=== PATIENT | female | born 1950 | race African-American/Black ===

== ENCOUNTER 2016-03-19 15:49 | Inpatient (IN) | payer OTHER, MEDICARE ==
[~2016-03-19] VITALS: Ht 166.4 cm; Wt 112.3 kg
[2016-03-19] VITALS (15 sets, daily range): BP systolic 129–187; BP diastolic 74–90; PULSE 79–84; RESP 24–34; TEMP 97.6–98.2; O2SAT 95–100
[~2016-03-19 15:49] MED LIST: 1-ME1LIQ PO; ACET325 PO; GABA300C3 PO; LORTA5 PO; METF-324; VASO10TA8 PO; ZOCO40TA PO
[2016-03-19 16:15] LABS: BLOOD GAS BASE EXCESS 2.5 mmol/L (-2-2); BLOOD GAS CARBOXYHEMOGLOBIN 2.4 % (0-4); BLOOD GAS HCO3 29 mmol/L (22-26); BLOOD GAS O2 HGB SATURATION 93 % (90-100); BLOOD GAS PCO2 64 mmHg (38-42); BLOOD GAS PO2 100 mmHG (61-120); BLOOD GAS TOTAL HGB 12.1 G/DL (12.0-16.0); TEMP CORR TO 98.6
[2016-03-19] MEDS ORDERED: SODIUM CHLORIDE 0.9% FLUSH 5 ML FLUSH IVF PRN (16:15)
[2016-03-19] MEDS ORDERED: FUROSEMIDE 100 MG/10 ML VIAL IV PUSH ONE (16:15)
[2016-03-19 16:16] LABS: CRITICAL VALUE YES; DRAW SITE RT RADIAL; FIO2 100 %; LITER FLOW 15 L/M; NUMBER OF ARTERIAL PUNCTURES 1; STAT YES; ULNAR PULSE PRESENT
--- NOTE | 2016-03-19 16:24 | PD ---
HPI Chief Complaint: respiratory distress Time Seen by Provider: 16:01 Travel History International Travel<30 days: No Contact w/Intl Traveler<30days: No Traveled to known affect area: No History of Present Illness HPI 66-year-old female came to the emergency room with history of progressive shortness of breath for past 2 months. She has been seeing her wrapper cashier and aix architect for this. However for past couple days it has become very difficult for her to do the slightest of the activities without getting short of breath. She was brought in by her family and in triage her oxygen saturation was 71% on room air. Droop or either she is saturating 99%. She is able to answer my questions appropriately. She does appear to be moderately short of breath at rest. Denies any history of chest pain. She has history of coronary artery disease. [facility] Past Medical History Narrative Medical List of her past medical history is reviewed from the nursing note. Blood Disorders: Yes (past history of anemia) Cardiovascular Problems: Yes Chest Pain: Yes Diabetes: Yes (oral med controlled) Headaches: Yes Hypertension: Yes Neurologic: Yes Past Surgical History Gynecologic Surgery: Yes (tubal ligation) Social History Alcohol Use: Yes (occasional glass of wine) Tobacco Use: No Substance Use: No Allergies-Medications (Allergen,Severity, Reaction): Coded Allergies: No Known Allergies (Verified , 03/19/16) Comments No known drug allergies. Reported Meds & Prescriptions Reported Meds & Active Scripts Active Reported Dulera 120 Act Inh (Mometasone-Formoterol 120 Act Inh) 100-5 Mcg/Act Inh 2 Puff INH BID Naproxen 500 Mg Tab 500 Mg PO BID PRN Vitamin D (Cholecalciferol) 1,000 Unit Tab 1,000 Units PO DAILY Simvastatin 10 Mg Tab 10 Mg PO DAILY Losartan (Losartan Potassium) 25 Mg Tab 25 Mg PO DAILY Diclofenac Sodium DR (Diclofenac Sodium) 75 Mg Tabdr 75 Mg PO DAILY Amlodipine (Amlodipine Besylate) 10 Mg Tab 10 Mg PO DAILY Allopurinol 300 Mg Tab 300 Mg PO DAILY Atenolol 50 Mg Tab 50 Mg PO DAILY Invokamet (Canagliflozin-Metformin) 150-1,000 Mg Tab 1 Tab PO BID Take with meals. Avoid ethanol. Narrative Medication List of her home medications reviewed from the nursing note. Review of Systems Except as stated in HPI: all other systems reviewed are Neg Physical Exam Narrative GENERAL: Awake, alert, obese, moderate distress SKIN: Warm and dry. HEAD: Atraumatic. Normocephalic. EYES: Pupils equal and round. No scleral icterus. No injection or drainage. ENT: No nasal bleeding or discharge. Mucous membranes pink and moist. NECK: Trachea midline. No JVD. CARDIOVASCULAR: Regular rate and rhythm. No murmur appreciated. RESPIRATORY: Tachypnea, use of accessory muscles for respiration. Decreased air entry especially right side with bibasilar crackles GASTROINTESTINAL: Abdomen soft, non-tender, nondistended. Hepatic and splenic margins not palpable. MUSCULOSKELETAL: No obvious deformities. No clubbing. No cyanosis. No edema. NEUROLOGICAL: Awake and alert. No obvious cranial nerve deficits. Motor grossly within normal limits. Normal speech. PSYCHIATRIC: Appropriate mood and affect; insight and judgment normal. Data Data Last Documented VS Vital Signs Date Time Temp Pulse Resp B/P Pulse Ox O2 Delivery O2 Flow Rate FiO2 03/19/16 17:30 82 24 148/84 99 BiPAP 60 03/19/16 16:10 15 03/19/16 16:00 98.2 Orders Complete Blood Count With Diff (03/19/16 16:01) Basic Metabolic Panel (Bmp) (03/19/16 16:01) B-Type Natriuretic Peptide (03/19/16 16:01) Prothrombin Time / Inr (Pt) (03/19/16 16:01) Magnesium (Mg) (03/19/16 16:01) Ckmb (Isoenzyme) Profile (03/19/16 16:01) Troponin I (03/19/16 16:01) Arterial Blood Gas (Abg) (03/19/16 16:01) Urinalysis - C+S If Indicated (03/19/16 16:01) Iv Access Insert/Monitor (03/19/16 16:01) Electrocardiogram (03/19/16 16:01) Ecg Monitoring (03/19/16 16:01) Oximetry (03/19/16 16:01) Oxygen Administration (03/19/16 16:01) Chest, Single Ap (03/19/16 16:01) Ct Pulmonary Angiogram (03/19/16 16:01) Sodium Chloride 0.9% Flush (Ns Flush) (03/19/16 16:15) Furosemide Inj (Lasix Inj) (03/19/16 16:15) Resp Bipap / Cpap Non Invas Vt (03/19/16 ) Arterial Blood Gas (Abg) (03/19/16 ) Admit Order (Ed Use Only) (03/19/16 17:52) Arterial Blood Gas (Abg) (03/19/16 19:00) Labs Laboratory Tests Test 03/19/16 03/19/16 03/19/16 16:06 16:10 17:18 Blood Gas Puncture Site RT RADIAL RT RADIAL Blood Gas Patient Temperature 98.6 98.6 Blood Gas HCO3 29 mmol/L 29 mmol/L Blood Gas Base Excess 2.5 mmol/L 2.6 mmol/L Blood Gas Oxygen Saturation 93 % 91 % Arterial Blood pH 7.27 7.27 Arterial Blood Partial 64 mmHg 64 mmHg Pressure CO2 Arterial Blood Partial 100 mmHG 84 mmHG Pressure O2 Arterial Blood Oxygen Content 16.0 Vol % 15.5 Vol % Arterial Blood 2.4 % 2.3 % Carboxyhemoglobin Arterial Blood Methemoglobin 2.0 % 2.0 % Blood Gas Hemoglobin 12.1 G/DL 12.0 G/DL Oxygen Delivery Device Non-Rebreathing BiPAP Mask Blood Gas Liter Flow 15 L/M Blood Gas Inspired Oxygen 100 % 60 % White Blood Count 6.3 TH/MM3 Red Blood Count 4.27 MIL/MM3 Hemoglobin 12.0 GM/DL Hematocrit 36.5 % Mean Corpuscular Volume 85.5 FL Mean Corpuscular Hemoglobin 28.1 PG Mean Corpuscular Hemoglobin 32.9 % Concent Red Cell Distribution Width 14.9 % Platelet Count 243 TH/MM3 Mean Platelet Volume 8.3 FL Neutrophils (%) (Auto) 71.6 % Lymphocytes (%) (Auto) 17.5 % Monocytes (%) (Auto) 8.2 % Eosinophils (%) (Auto) 2.1 % Basophils (%) (Auto) 0.6 % Neutrophils # (Auto) 4.5 TH/MM3 Lymphocytes # (Auto) 1.1 TH/MM3 Monocytes # (Auto) 0.5 TH/MM3 Eosinophils # (Auto) 0.1 TH/MM3 Basophils # (Auto) 0.0 TH/MM3 CBC Comment DIFF FINAL Differential Comment Prothrombin Time 10.0 SEC Prothromb Time International 0.9 RATIO Ratio Sodium Level 143 MEQ/L Potassium Level 4.6 MEQ/L Chloride Level 108 MEQ/L Carbon Dioxide Level 29.4 MEQ/L Anion Gap 6 MEQ/L Blood Urea Nitrogen 20 MG/DL Creatinine 1.41 MG/DL Estimat Glomerular Filtration 45 ML/MIN Rate Random Glucose 107 MG/DL Calcium Level 8.8 MG/DL Magnesium Level 2.0 MG/DL Total Creatine Kinase 52 U/L Troponin I LESS THAN 0.02 NG/ML B-Type Natriuretic Peptide 57 PG/ML Blood Gas Ventilator Setting [id number] [facility] Medical Decision Making Medical Screen Exam Complete: Yes Emergency Medical Condition: Yes Medical Record Reviewed: Yes Interpretation(s) Twelve-lead EKG was reviewed by me. Normal sinus rhythm, left axis deviation, questionable old anterior and inferior LA, anterior T-wave inversions, LVH. Heart rate of 82 bpm. Differential Diagnosis Congestive heart failure, pleural effusion, pulmonary edema, pneumonia Narrative Course 4:23 PM awaiting for the blood test results. Blood gas shows respiratory acidosis. Based on that I have ordered BiPAP. Repeat blood gas has been ordered after 1 hour of BiPAP. Awaiting for the chest x-ray to be done and resulted. I've ordered IV Lasix. Patient will require to be admitted which have discussed with her and her family understands. 5:50 PM patient's repeat blood gas after being on the BiPAP for almost an hour came back and she still in respiratory acidosis. Pressures have been increased and the nurse is trying to get a small mask for better fitting. Patient continues to be awake and answering questions appropriately. BNP and troponin are within normal limit. There is an order for pulmonary angiogram that is pending to rule out PE. I discussed the case with the day care provider Dr. Collins who has accepted the patient and agrees with the pulmonary angiogram. Critical Care Narrative Aggregate critical care time was 60 minutes. Time to perform other separately billable procedures was not included in the critical care time. My time did not include minutes spent treating any other patients simultaneously or on activities that did not directly contribute to the patient's treatment. The services I provided to this patient were to treat and/or prevent clinically significant deterioration that could result in: Respiratory distress, severe hypoxia, respiratory acidosis, BiPAP management I provided critical care services requiring my management, as noted below: Chart data review, documentation time, medication orders and management, vital sign assessments/reviewing monitor data, ordering and reviewing lab tests, ordering and interpreting/reviewing x-rays and diagnostic studies, care of the patient and discussion of the patient with the admitting physicians. Procedures EKG Prior to Arrival: Yes Physician Communication Physician Communication Dr. Collins Diagnosis Primary Impression: Respiratory distress Additional Impressions: Hypoxia Respiratory acidosis Admitting Information Admitting Physician Requests: Admit Maya Contreras MD Mar 19, 2016 16:24
--- NOTE | 2016-03-19 16:28 | RADRPT ---
EXAM DATE/TIME: 03/19/2016 16:09 [facility] COMPARISON: No previous studies available for comparison. INDICATIONS : Shortness of breath. MEDICAL HISTORY : None. SURGICAL HISTORY : None. ENCOUNTER: Initial ACUITY: 1 day PAIN SCORE: 0/10 LOCATION: Bilateral chest FINDINGS: Small bilateral pleural effusions with mild bibasilar consolidation noted. No pneumothorax seen. Hear t size within normal limits. CONCLUSION: Mild bibasilar consolidation and small effusions. Chintan Motley MD on March 19, 2016 at 16:27 Board Certified Radiologist. This report was verified electronically.
[2016-03-19 17:10] LABS: AUTOMATED NEUTROPHIL # 4.5 TH/MM3 (1.8-7.7); BASOPHIL % 0.6 % (0.0-2.0); EOSINOPHIL # 0.1 TH/MM3 (0-0.4); EOSINOPHIL % 2.1 % (0.0-4.0); HEMATOCRIT 36.5 % (35.0-46.0); HEMO FLAGS DIFF FINAL; LYMPH % 17.5 % (9.0-44.0); LYMPHOCYTE # 1.1 TH/MM3 (1.0-4.8); MEAN CELL VOLUME 85.5 FL (80.0-100.0); MEAN CORPUSCULAR HEMOGLOBIN 28.1 PG (27.0-34.0); MEAN CORPUSCULAR HGB CONC 32.9 % (32.0-36.0); MONO % 8.2 % (0.0-8.0); NEUT % 71.6 % (16.0-70.0); PLATELET COUNT 243 TH/MM3 (150-450); RED BLOOD COUNT 4.27 MIL/MM3 (4.00-5.30); RED CELL DISTRIBUTION WIDTH 14.9 % (11.6-17.2); WHITE BLOOD COUNT 6.3 TH/MM3 (4.0-11.0)
[2016-03-19 17:17] LABS: INTERNATIONAL NORMALIZED RATIO 0.9 RATIO
[2016-03-19 17:28] LABS: ANION GAP 6 MEQ/L (5-15); BICARBONATE 29.4 MEQ/L (21.0-32.0); BLOOD UREA NITROGEN 20 MG/DL (7-18); CHLORIDE 108 MEQ/L (98-107); GLOMERULAR FILTRATION RATE 45 ML/MIN (>89); POTASSIUM 4.6 MEQ/L (3.5-5.1); SODIUM (NA) 143 MEQ/L (136-145)
[2016-03-19 17:29] LABS: BLOOD GAS BASE EXCESS 2.6 mmol/L (-2-2); BLOOD GAS CARBOXYHEMOGLOBIN 2.3 % (0-4); BLOOD GAS HCO3 29 mmol/L (22-26); BLOOD GAS O2 HGB SATURATION 91 % (90-100); BLOOD GAS OXYGEN CONTENT 15.5 Vol % (12.0-20.0); BLOOD GAS PCO2 64 mmHg (38-42); BLOOD GAS PO2 84 mmHG (61-120); CRITICAL VALUE YES; TEMP CORR TO 98.6
[2016-03-19 17:30] LABS: DRAW SITE RT RADIAL; FIO2 60 %; NUMBER OF ARTERIAL PUNCTURES 1; OXYGEN DEVICE BiPAP; STAT NO; ULNAR PULSE PRESENT; VENT SETTINGS IPAP15EPAP7
[2016-03-19 17:33] LABS: CREATINE KINASE 52 U/L (26-192)
[2016-03-19] MEDS ORDERED: ONDANSETRON HCL 4 MG/2 ML VIAL IV PRN (18:00)
[2016-03-19] MEDS ORDERED: DEXTROSE 50% IN WATER 50 ML VIAL(D50) IV PUSH PRN (18:00)
[2016-03-19] MEDS ORDERED: RESP: ALBUTEROL 2.5 MG/IPRATROPIUM 0.5 MG NEB (PRN) INH (18:00)
[2016-03-19] MEDS ORDERED: MISCELLANEOUS NURSING INFORMATION XX SCH (18:00)
[2016-03-19] MEDS ORDERED: SODIUM CHLORIDE 0.9% FLUSH 5 ML FLUSH IV FLUSH PRN (18:00)
[2016-03-19] MEDS: INSULIN NovoLIN REGULAR SUPPLEMENTAL SCALE SQ SCH (18:00)
[2016-03-19] MEDS ORDERED: CHLORHEXIDINE GLUCONATE 2 % 1 PACK (2 CLOTHS) TOP PRN (18:00)
[2016-03-19] MEDS ORDERED: IOHEXOL 350 MG/ML 10 ML VIAL (for RAD DIAG) IV ONE (18:04)
--- NOTE | 2016-03-19 18:20 | RADRPT ---
EXAM DATE/TIME: 03/19/2016 17:52 [facility] COMPARISON: No previous studies available for comparison. INDICATIONS : Shortness of breath. IV CONTRAST: 50 cc Omnipaque 350 (iohexol) IV RADIATION DOSE: 25.12 CTDIvol (mGy) MEDICAL HISTORY : Cardiovascular disease. Hypertension. SURGICAL HISTORY : None. ENCOUNTER: Initial ACUITY: 1 day PAIN SCALE: 3/10 LOCATION: Bilateral chest TECHNIQUE: Volumetric scanning of the chest was performed using a pulmonary embolism protocol MIP images were re constructed. Using automated exposure control and adjustment of the mA and/or kV according to patien t size, radiation dose was kept as low as reasonably achievable to obtain optimal diagnostic quality images. FINDINGS: No pulmonary embolus. There is left ventricular enlargement. No perceptible coronary artery calcifica tion seen. Moderate bibasilar atelectasis noted and there are small, bilateral pleural effusions as well. N o pneumothorax. There is a 2.3 x 2.9 cm subcarinal lymph node. Some scattered subcentimeter lymph nodes are seen elsewhere in the mediastinum. CONCLUSION: 1. No pulmonary embolus. 2. Moderate bibasilar atelectasis and small bilateral pleural effusions. 3. Nonspecific upper limits of normal to mildly enlarged mediastinal lymph nodes. 4. Left ventricular enlargement. Chintan Motley MD on March 19, 2016 at 18:14 Board Certified Radiologist. This report was verified electronically.
[2016-03-19 18:25] LABS: BLOOD, URINE NEG (NEG); COMMENT (UR) CULT NOT INDICATED; CULTURE IF INDICATED CULT NOT INDICATED; GLUCOSE,URINE NEG (NEG); HYALINE CAST, URINE 1 /lpf (RARE); KETONE, URINE NEG (NEG); MUCUS URINE FEW /lpf (OCC); NITRITE,URINE NEG (NEG); PH, URINE 5.5 (5.0-8.5); SQUAMOUS EPITHELIAL CELL URINE 2 /hpf (0-5); URINE COLOR LIGHT-YELLOW (YELLW/STRAW)
[2016-03-19] MEDS ORDERED: VITA100064 PO (18:29)
[2016-03-19] MEDS ORDERED: SIMV10TA PO (18:29)
[2016-03-19] MEDS ORDERED: AMLO10TA2 PO (18:29)
[2016-03-19] MEDS ORDERED: NAPR500T PO (18:29)
[2016-03-19] MEDS ORDERED: ATEN50TA PO (18:29)
[2016-03-19] MEDS ORDERED: CANA1TAB4 PO (18:29)
[2016-03-19] MEDS ORDERED: DICL75TA PO (18:29)
[2016-03-19] MEDS ORDERED: ALLO300T2 PO (18:29)
[2016-03-19] MEDS ORDERED: DULE100A INH (18:29)
[2016-03-19] MEDS ORDERED: LOSA25TA PO (18:29)
--- NOTE | 2016-03-19 19:28 | HHI.HP ---
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 She states her symptoms have been progressive over the last 2- 3 months but have been significantly worse over the last 3 days. She gets short of breath with getting out of her bed and going to the recliner. She has a nonproductive cough. No hemoptysis. No fevers or chills. No known ill contacts. She has been referred to pulmonology and was seen by Dr. Womack and had pulmonary function testing performed on 03/14/16 but has not yet had follow- up regarding results.. She is not on home oxygen. She has been evaluated by Dr. Rodriguez with cardiology and had previous plans for stress test 03/24/16. She denies any chest pain. Troponin is 0.02. BNP is 57. She has acute hypoxemic and hypercapnic respiratory failure with pH of 7.27/PaCO2 of 64/PA O2 of 100/bicarbonate 29. In the ED she received Lasix 80 mg IV Past Family Social History Allergies: Coded Allergies: No Known Allergies (Verified , 03/19/16) Past Medical History Diabetes CHF Hypertension CKD Pulmonology: Dr. Matt Womack (recent referral, had PFTs in office but has not followed up yet) Cardiology: [facility] Nephrology: Dr. Gonzalez Past Surgical History Bilateral tubal ligation Cardiac catheterization 08/25/05 normal coronaries She states she had an EGD due to dysphagia and heartburn symptoms but she states "they found nothing wrong" Reported Medications Dulera 2 puffs inhaled twice a day Losartan 25 mg by mouth daily Allopurinol 300 mg by mouth daily Atenolol 50 mg by mouth daily Amlodipine 10 mg by mouth daily Simvastatin 20 mill grams by mouth daily Diclofenac 75 mg by mouth daily Naproxen 500 mg by mouth twice a day Canaglifozin/Metformin 150/1000 milligrams 1 tab by mouth twice a day Cholecalciferol 1000 units by mouth daily Family History Her mother had CHF CKD and diabetes Social History She states that she smoked about a pack of cigarettes a week for 4-5 years and quit 35 years ago Drinks alcohol rarely Physical Exam Vital Signs Vital Signs Date Time Temp Pulse Resp B/P Pulse Ox O2 Delivery O2 Flow Rate FiO2 03/19/16 18:14 96 60 03/19/16 16:39 80 34 165/82 98 BiPAP 60 03/19/16 16:36 98 60 03/19/16 16:35 98 BiPAP 60 03/19/16 16:10 99 Non-Rebreather 15 03/19/16 16:10 82 26 99 Non-Rebreather 15 03/19/16 16:00 98.2 83 26 187/90 99 Physical Exam GENERAL: Well-nourished, well-developed obese patient who is sitting up in the ED gurney conversing with family and alert on BiPAP. SKIN: Warm and dry. HEAD: Atraumatic. Normocephalic. EYES: Pupils equal and round. No scleral icterus. ENT: BiPAP mask n place. NECK: Trachea midline. No JVD. CARDIOVASCULAR: Regular rate and rhythm. No murmurs rubs or gallops. RESPIRATORY: No accessory muscle use. Bibasilar coarse rales. GASTROINTESTINAL: Abdomen soft, non-tender, nondistended. Hepatic and splenic margins not palpable. MUSCULOSKELETAL: Extremities without clubbing, cyanosis. 1+ pedal edema. NEUROLOGICAL: Awake and alert. No obvious cranial nerve deficits. Motor grossly within normal limits. Laboratory Laboratory Tests Test 03/19/16 03/19/16 03/19/16 03/19/16 16:06 16:10 17:18 18:00 Blood Gas Puncture Site RT RADIAL RT RADIAL Blood Gas Patient Temperature 98.6 98.6 Blood Gas HCO3 29 29 Blood Gas Base Excess 2.5 2.6 Blood Gas Oxygen Saturation 93 91 Arterial Blood pH 7.27 7.27 Arterial Blood Partial 64 64 Pressure CO2 Arterial Blood Partial 100 84 Pressure O2 Arterial Blood Oxygen Content 16.0 15.5 Arterial Blood 2.4 2.3 Carboxyhemoglobin Arterial Blood Methemoglobin 2.0 2.0 Blood Gas Hemoglobin 12.1 12.0 Oxygen Delivery Device Non-Rebreathing BiPAP Mask Blood Gas Liter Flow 15 Blood Gas Inspired Oxygen 100 60 White Blood Count 6.3 Red Blood Count 4.27 Hemoglobin 12.0 Hematocrit 36.5 Mean Corpuscular Volume 85.5 Mean Corpuscular Hemoglobin 28.1 Mean Corpuscular Hemoglobin 32.9 Concent Red Cell Distribution Width 14.9 Platelet Count 243 Mean Platelet Volume 8.3 Neutrophils (%) (Auto) 71.6 Lymphocytes (%) (Auto) 17.5 Monocytes (%) (Auto) 8.2 Eosinophils (%) (Auto) 2.1 Basophils (%) (Auto) 0.6 Neutrophils # (Auto) 4.5 Lymphocytes # (Auto) 1.1 Monocytes # (Auto) 0.5 Eosinophils # (Auto) 0.1 Basophils # (Auto) 0.0 CBC Comment DIFF FINAL Differential Comment Prothrombin Time 10.0 Prothromb Time International 0.9 Ratio Sodium Level 143 Potassium Level 4.6 Chloride Level 108 Carbon Dioxide Level 29.4 Anion Gap 6 Blood Urea Nitrogen 20 Creatinine 1.41 Estimat Glomerular Filtration 45 Rate Random Glucose 107 Calcium Level 8.8 Magnesium Level 2.0 Total Creatine Kinase 52 Troponin I LESS THAN 0.02 B-Type Natriuretic Peptide 57 Blood Gas Ventilator Setting [id number] Urine Color LIGHT-YELLOW Urine Turbidity CLEAR Urine pH 5.5 Urine Specific [place] 1.007 Urine Protein 30 Urine Glucose (UA) NEG Urine Ketones NEG Urine Occult Blood NEG Urine Nitrite NEG Urine Bilirubin NEG Urine Urobilinogen LESS THAN 2.0 Urine Leukocyte Esterase TRACE Urine RBC LESS THAN 1 Urine WBC 1 Urine Squamous Epithelial 2 Cells Urine Hyaline Casts 1 Urine Mucus FEW Microscopic Urinalysis Comment CULT NOT INDICATED Date/Time Procedure Status Source Growth 03/19/16 18:45 Aerobic Blood Culture Received Blood Peripheral Pending 03/19/16 18:45 Anaerobic Blood Culture Received Blood Peripheral Pending Result Diagram: 03/19/16 1610 03/19/16 1610 Assessment and Plan Assessment and Plan NEURO: She is alert and interactive on Bipap. Denies pain. RESP: Acute hypoxemic and hypercapnic respiratory failure Obesity hypoventilation syndrome Bronchiectasis Remote history of tobacco abuse CTA demonstrates no evidence of pulmonary embolism. There are bibasilar opacities and bronchiectasis. Patient does have a history of reflux symptoms so I would still be suspicious that she could have GERD as contributor to bronchiectasis, though she reports h/o negative EGD. Will treat with Solu- Medrol 60 mg IV every 6 hours and empiric Levaquin 750 mg IV every 24 hours. Consult pulmonology and followup PFTS. CV: Hypertension Hyperlipidemia Chronic systolic heart failure Pravastatin 80 mg by mouth daily at bedtime. Continue Norvasc 10 mg by mouth daily Troponin negative and BNP 57. Follow-up 2-D echo Had stress SPECT with anterolateral ischemia but cardiac catheterization 08/26/15 showed normal coronaries. GI: Morbid obesity Alessandra-Colace twice a day for bowel regimen. Nothing by mouth except medications for now. Advanced heart healthy diet when appropriate. FEN/RENAL: CKD stage II Received Lasix 80 mg IV in the emergency department. Follow up BMP. Replace electrolytes as indicated. ID: [id number] for atypical coverage as per above as per discussion above Follow up blood culture 03/19/16. HEME: No acute hematologic issues. Monitor CBC. ENDO: Diabetes mellitus Hold canaglifozin/metformin home med. Medium dose insulin sliding scale at bedside glucose before meals at bedtime MSK: Gout Allopurinol is not essential at this time. When able to take po would resume but adjust dose to 100 mg by mouth daily due to renal function. PROPH: Heparin 5000 units subcutaneous every 8 hours for DVT prophylaxis. Protonix 40 mg IV daily for stress ulcer prophylaxis. ACCESS: Peripheral IV providing adequate access. CCT 40 minutes Vonnie Booth MD Mar 19, 2016 19:28 Vonnie Booth MD Mar 19, 2016 19:28
[2016-03-19] MEDS: RESP: ALBUTEROL 2.5 MG/IPRATROPIUM 0.5 MG NEB (SCH) INH (19:51)
[2016-03-19] MEDS ORDERED: LEVOFLOXACIN 750 MG PREMIX INJ 150 ML IV SCH ×2 (20:45→21:00)
[2016-03-19] MEDS ORDERED: methylPREDNISolone SOD SUCC 125 MG/2 ML VIAL IV PUSH SCH (21:00)
[2016-03-19] MEDS ORDERED: GABAPENTIN 300 MG CAP PO SCH (21:00)
[2016-03-19] MEDS: DOCUSATE SODIUM 50 MG/SENNA 8.6 MG TAB PO SCH (21:27)
[2016-03-19] MEDS: PRAVASTATIN SOD 80 MG TAB PO SCH (21:27)
[2016-03-19] MEDS: SODIUM CHLORIDE 0.9% FLUSH 5 ML FLUSH IV FLUSH SCH (21:28)
[2016-03-19] MEDS: HEPARIN SODIUM - SQ 10,000 UNITS/ML VIAL SQ SCH (21:28)
[2016-03-19 21:29] LABS: BLOOD GAS BASE EXCESS 2.7 mmol/L (-2-2); BLOOD GAS HCO3 29 mmol/L (22-26); BLOOD GAS METHEMOGLOBIN 2.1 % (0-2); BLOOD GAS O2 HGB SATURATION 91 % (90-100); BLOOD GAS OXYGEN CONTENT 15.7 Vol % (12.0-20.0); BLOOD GAS PCO2 68 mmHg (38-42); BLOOD GAS PO2 84 mmHG (61-120); BLOOD GAS TOTAL HGB 12.2 G/DL (12.0-16.0); CRITICAL VALUE YES; OXYGEN DEVICE BIPAP; TEMP CORR TO 98.6
[2016-03-19 21:30] LABS: DRAW SITE RT RADIAL; FIO2 60 %; NUMBER OF ARTERIAL PUNCTURES 1; STAT NO; ULNAR PULSE PRESENT; VENT SETTINGS IPAP=18 EPAP=8
[2016-03-20] VITALS (17 sets, daily range): BP systolic 136–169; BP diastolic 65–78; PULSE 60–95; RESP 22–24; TEMP 97.6–98.5; O2SAT 91–97
[2016-03-20] MEDS: RESP: ALBUTEROL 2.5 MG/IPRATROPIUM 0.5 MG NEB (SCH) INH ×7 (00:04→23:22)
[2016-03-20] MEDS: CHLORHEXIDINE GLUCONATE 2 % 1 PACK (2 CLOTHS) TOP SCH (04:00)
[2016-03-20] MEDS: PANTOPRAZOLE SODIUM 40 MG VIAL IV PUSH SCH (05:37)
[2016-03-20] MEDS: HEPARIN SODIUM - SQ 10,000 UNITS/ML VIAL SQ SCH ×3 (05:37→20:13)
[2016-03-20 05:51] LABS: BLOOD GAS BASE EXCESS 2.9 mmol/L (-2-2); BLOOD GAS CARBOXYHEMOGLOBIN 1.5 % (0-4); BLOOD GAS HCO3 29 mmol/L (22-26); BLOOD GAS METHEMOGLOBIN 1.3 % (0-2); BLOOD GAS O2 HGB SATURATION 88 % (90-100); BLOOD GAS OXYGEN CONTENT 14.2 Vol % (12.0-20.0); BLOOD GAS PCO2 59 mmHg (38-42); BLOOD GAS PO2 64 mmHg (61-120); BLOOD GAS TOTAL HGB 11.5 G/DL (12.0-16.0); TEMP CORR TO 98.6
[2016-03-20 05:52] LABS: CRITICAL VALUE YES; OXYGEN DEVICE BiPAP
[2016-03-20 05:53] LABS: DRAW SITE RT RADIAL; FIO2 40 %; NUMBER OF ARTERIAL PUNCTURES 1; STAT NO; ULNAR PULSE PRESENT; VENT SETTINGS IPAP18/EPAP8
[2016-03-20] MEDS: INSULIN NovoLIN REGULAR SUPPLEMENTAL SCALE SQ SCH ×4 (06:00→18:00)
--- NOTE | 2016-03-20 06:16 | RADRPT ---
EXAM DATE/TIME: 03/20/2016 05:16 [facility] COMPARISON: CHEST SINGLE AP, March 19, 2016, 16:09. INDICATIONS : Short of breath. MEDICAL HISTORY : None. SURGICAL HISTORY : None. ENCOUNTER: Subsequent ACUITY: 2 days PAIN SCORE: 6/10 LOCATION: Bilateral chest FINDINGS: A single portable frontal view the chest shows tiny bilateral pleural effusions and bibasilar consoli dation. The appearance is stable. Heart is at the upper limits of normal in terms of size. Degenerati ve spine. CONCLUSION: Unchanged tiny effusions and bibasilar consolidation. Mitchell Collins Jr., MD on March 20, 2016 at 6:13 Board Certified Radiologist. This report was verified electronically.
[2016-03-20 06:51] LABS: BICARBONATE 30.8 MEQ/L (21.0-32.0); POTASSIUM 5.3 MEQ/L (3.5-5.1)
[2016-03-20 06:54] LABS: HEMATOCRIT 33.1 % (35.0-46.0); MEAN CELL VOLUME 85.6 FL (80.0-100.0); MEAN CORPUSCULAR HEMOGLOBIN 27.5 PG (27.0-34.0); MEAN CORPUSCULAR HGB CONC 32.2 % (32.0-36.0); PLATELET COUNT 232 TH/MM3 (150-450); RED BLOOD COUNT 3.87 MIL/MM3 (4.00-5.30); RED CELL DISTRIBUTION WIDTH 14.6 % (11.6-17.2); REVIEW FLAG FINAL; WHITE BLOOD COUNT 5.6 TH/MM3 (4.0-11.0)
[2016-03-20] MEDS ORDERED: FAMOTIDINE 20 MG TAB PO SCH (09:00)
[2016-03-20] MEDS: methylPREDNISolone SOD SUCC 125 MG/2 ML VIAL IV PUSH SCH ×3 (09:05→20:03)
[2016-03-20] MEDS: DOCUSATE SODIUM 50 MG/SENNA 8.6 MG TAB PO SCH ×2 (09:05→20:03)
[2016-03-20] MEDS: SODIUM CHLORIDE 0.9% FLUSH 5 ML FLUSH IV FLUSH SCH ×2 (09:07→20:03)
--- NOTE | 2016-03-20 09:35 | HHI.CCPN ---
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 She states her symptoms have been progressive over the last 2- 3 months but have been significantly worse over the last 3 days. She gets short of breath with getting out of her bed and going to the recliner. She has a nonproductive cough. No hemoptysis. No fevers or chills. No known ill contacts. She has been referred to pulmonology and was seen by Dr. Womack and had pulmonary function testing performed on 03/14/16 but has not yet had follow- up regarding results.. She is not on home oxygen. She has been evaluated by Dr. Rodriguez with cardiology and had previous plans for stress test 03/24/16. She denies any chest pain. Troponin is 0.02. BNP is 57. She has acute hypoxemic and hypercapnic respiratory failure with pH of 7.27/PaCO2 of 64/PA O2 of 100/bicarbonate 29 03/20 Patient tiffani BIPAP 03/11 with 40% FIO2. Afebrile. Awake and alert. Objective Vital Signs Date Time Temp Pulse Resp B/P Pulse Ox O2 Delivery O2 Flow Rate FiO2 03/20/16 06:00 62 03/20/16 04:03 94 40 03/20/16 04:00 97.6 22 136/75 03/19/16 19:43 BiPAP 03/19/16 16:10 15 Intake and Output 03/19/16 03/19/16 03/19/16 07:59 15:59 23:59 Intake Total 250 ml Output Total 500 ml Balance -250 ml Result Diagram: 03/20/16 0610 03/20/16 0610 Other Results Laboratory Tests Test 03/19/16 03/19/16 03/19/16 03/19/16 16:06 16:10 17:18 18:00 Blood Gas Puncture Site RT RADIAL RT RADIAL Blood Gas Patient Temperature 98.6 98.6 Blood Gas HCO3 29 mmol/L 29 mmol/L Blood Gas Base Excess 2.5 mmol/L 2.6 mmol/L Blood Gas Oxygen Saturation 93 % 91 % Arterial Blood pH 7.27 7.27 Arterial Blood Partial 64 mmHg 64 mmHg Pressure CO2 Arterial Blood Partial 100 mmHG 84 mmHG Pressure O2 Arterial Blood Oxygen Content 16.0 Vol % 15.5 Vol % Arterial Blood 2.4 % 2.3 % Carboxyhemoglobin Arterial Blood Methemoglobin 2.0 % 2.0 % Blood Gas Hemoglobin 12.1 G/DL 12.0 G/DL Oxygen Delivery Device Non-Rebreathing BiPAP Mask Blood Gas Liter Flow 15 L/M Blood Gas Inspired Oxygen 100 % 60 % White Blood Count 6.3 TH/MM3 Red Blood Count 4.27 MIL/MM3 Hemoglobin 12.0 GM/DL Hematocrit 36.5 % Mean Corpuscular Volume 85.5 FL Mean Corpuscular Hemoglobin 28.1 PG Mean Corpuscular Hemoglobin 32.9 % Concent Red Cell Distribution Width 14.9 % Platelet Count 243 TH/MM3 Mean Platelet Volume 8.3 FL Neutrophils (%) (Auto) 71.6 % Lymphocytes (%) (Auto) 17.5 % Monocytes (%) (Auto) 8.2 % Eosinophils (%) (Auto) 2.1 % Basophils (%) (Auto) 0.6 % Neutrophils # (Auto) 4.5 TH/MM3 Lymphocytes # (Auto) 1.1 TH/MM3 Monocytes # (Auto) 0.5 TH/MM3 Eosinophils # (Auto) 0.1 TH/MM3 Basophils # (Auto) 0.0 TH/MM3 CBC Comment DIFF FINAL Differential Comment Prothrombin Time 10.0 SEC Prothromb Time International 0.9 RATIO Ratio Sodium Level 143 MEQ/L Potassium Level 4.6 MEQ/L Chloride Level 108 MEQ/L Carbon Dioxide Level 29.4 MEQ/L Anion Gap 6 MEQ/L Blood Urea Nitrogen 20 MG/DL Creatinine 1.41 MG/DL Estimat Glomerular Filtration 45 ML/MIN Rate Random Glucose 107 MG/DL Calcium Level 8.8 MG/DL Magnesium Level 2.0 MG/DL Total Creatine Kinase 52 U/L Troponin I LESS THAN 0.02 NG/ML B-Type Natriuretic Peptide 57 PG/ML Blood Gas Ventilator Setting [id number] Urine Color LIGHT-YELLOW Urine Turbidity CLEAR Urine pH 5.5 Urine Specific [place] 1.007 Urine Protein 30 mg/dL Urine Glucose (UA) NEG mg/dL Urine Ketones NEG mg/dL Urine Occult Blood NEG Urine Nitrite NEG Urine Bilirubin NEG Urine Urobilinogen LESS THAN 2.0 MG/DL Urine Leukocyte Esterase TRACE Urine RBC LESS THAN 1 /hpf Urine WBC 1 /hpf Urine Squamous Epithelial 2 /hpf Cells Urine Hyaline Casts 1 /lpf Urine Mucus FEW /lpf Microscopic Urinalysis Comment CULT NOT INDICATED Test 03/19/16 03/19/16 03/20/16 03/20/16 19:30 20:20 05:41 06:10 Blood Gas Puncture Site RT RADIAL RT RADIAL Blood Gas Patient Temperature 98.6 98.6 Blood Gas HCO3 29 mmol/L 29 mmol/L Blood Gas Base Excess 2.7 mmol/L 2.9 mmol/L Blood Gas Oxygen Saturation 91 % 88 % Arterial Blood pH 7.26 7.31 Arterial Blood Partial 68 mmHg 59 mmHg Pressure CO2 Arterial Blood Partial 84 mmHG 64 mmHg Pressure O2 Arterial Blood Oxygen Content 15.7 Vol % 14.2 Vol % Arterial Blood 2.0 % 1.5 % Carboxyhemoglobin Arterial Blood Methemoglobin 2.1 % 1.3 % Blood Gas Hemoglobin 12.2 G/DL 11.5 G/DL Oxygen Delivery Device BIPAP BiPAP Blood Gas Ventilator Setting IPAP=18 EPAP=8 [id number] Blood Gas Inspired Oxygen 60 % 40 % Nasal Screen MRSA (PCR) NEGATIVE White Blood Count 5.6 TH/MM3 Red Blood Count 3.87 MIL/MM3 Hemoglobin 10.7 GM/DL Hematocrit 33.1 % Mean Corpuscular Volume 85.6 FL Mean Corpuscular Hemoglobin 27.5 PG Mean Corpuscular Hemoglobin 32.2 % Concent Red Cell Distribution Width 14.6 % Platelet Count 232 TH/MM3 Mean Platelet Volume 8.3 FL Sodium Level 140 MEQ/L Potassium Level 5.3 MEQ/L Chloride Level 104 MEQ/L Carbon Dioxide Level 30.8 MEQ/L Anion Gap 5 MEQ/L Blood Urea Nitrogen 25 MG/DL Creatinine 1.80 MG/DL Estimat Glomerular Filtration 34 ML/MIN Rate Random Glucose 165 MG/DL Calcium Level 8.4 MG/DL Imaging Last Impressions Chest X-Ray 03/19/16 1601 Signed Impressions: Service Date/Time: Saturday, March 19, 2016 16:09 - CONCLUSION: Mild bibasilar consolidation and small effusions. Chintan Motley MD CT Angiography 03/19/16 1601 Signed Impressions: Service Date/Time: Saturday, March 19, 2016 17:52 - CONCLUSION: 1. No pulmonary embolus. 2. Moderate bibasilar atelectasis and small bilateral pleural effusions. 3. Nonspecific upper limits of normal to mildly enlarged mediastinal lymph nodes. 4. Left ventricular enlargement. Chintan Motley MD Objective Remarks GENERAL: Well-nourished, well-developed obese patient who is lying in bed in no acute distress on BiPAP. SKIN: Warm and dry. HEAD: Atraumatic. Normocephalic. EYES: Pupils equal and round. No scleral icterus. ENT: BiPAP mask n place. NECK: Trachea midline. No JVD. CARDIOVASCULAR: Regular rate and rhythm. No murmurs rubs or gallops. RESPIRATORY: No accessory muscle use. Clear to auscultation. Breath sounds equal bilaterally. GASTROINTESTINAL: Abdomen soft, non-tender, nondistended. Hepatic and splenic margins not palpable. MUSCULOSKELETAL: Extremities without clubbing, cyanosis, or edema. No obvious deformities. NEUROLOGICAL: Awake and alert. No obvious cranial nerve deficits. Motor grossly within normal limits. Five out of 5 muscle strength in the arms and legs. Normal speech. A/P Assessment and Plan NEURO: Awake, alert, avoid sedatives RESP: Acute hypoxemic and hypercapnic respiratory failure Bronchiectasis Remote history of tobacco abuse Continue with oxygen keep sat >92% Bronchodilators, solumederol 60mg Q6 NIPPV PRN for resp distress CTA demonstrates no evidence of pulmonary embolism. There are bibasilar opacities and subcarinal and mediastinal lymph nodes. Continue with Levaquin 750 mg IV every 24 hours. Consult pulmonology CV: Hypertension Hyperlipidemia Chronic systolic heart failure Monitor HR and BP keep MAP>65mmhg Pravastatin 80 mg by mouth daily at bedtime. Continue Norvasc 10 mg by mouth daily Troponin negative and BNP 57. Follow-up 2-D echo Had stress SPECT with anterolateral ischemia but cardiac catheterization 08/26/15 showed normal coronaries. GI: Morbid obesity Alessandra-Colace twice a day for bowel regimen. Start PO heart healthy diet FEN/RENAL: CKD stage II Monitor renal function. I/O's, electrolytes replacement as needed. Cr: 1.8 from 1.41- place on NS@42ml/hr ID: Levaquin for atypical coverage. Monitor forsigns of infections ( Fever,, WBC) Follow up blood culture 03/19/16. HEME: No acute hematologic issues. Monitor CBC. ENDO: Diabetes mellitus Medium dose SSI for glycemic control MSK: Gout PROPH: Heparin 5000 units SQ Q8 for DVT prophylaxis. Protonix 40 mg IV daily for stress ulcer prophylaxis. ACCESS: Peripheral IV providing adequate access. Level 3 Shan Yen MD Mar 20, 2016 09:35
[2016-03-20 11:31] LABS: BLOOD GAS BASE EXCESS 1.4 mmol/L (-2-2); BLOOD GAS CARBOXYHEMOGLOBIN 1.4 % (0-4); BLOOD GAS HCO3 28 mmol/L (22-26); BLOOD GAS METHEMOGLOBIN 1.3 % (0-2); BLOOD GAS O2 HGB SATURATION 81 % (90-100); BLOOD GAS OXYGEN CONTENT 12.7 Vol % (12.0-20.0); BLOOD GAS PCO2 61 mmHg (38-42); BLOOD GAS PO2 54 mmHg (61-120); BLOOD GAS TOTAL HGB 11.1 G/DL (12.0-16.0); CRITICAL VALUE YES; DRAW SITE RT RADIAL; LITER FLOW 4 L/M; NUMBER OF ARTERIAL PUNCTURES 1; OXYGEN DEVICE NASAL CANNULA; STAT NO; TEMP CORR TO 98.6; ULNAR PULSE PRESENT
--- NOTE | 2016-03-20 15:18 | MB ---
cc: AZRA HAAS MD [facility],VONNIE SUBRAMANIAN MD DATE OF CONSULTATION: 03/20/[address] Vonnie Booth REASON FOR CONSULTATION Respiratory insufficiency. HISTORY OF PRESENT ILLNESS Ms. Sharp is a pleasant 66-year-old morbidly obese -[place]ron[place] female with a history of hypertension, recently diagnosed congestive heart failure and chronic kidney disease. The patient has been having swelling in her legs. She was started on diuretics which were held by her hotel sales manager, Dr. Aric Gonzalez, because of worsening of her renal function. She had been having worsening shortness of breath over the last few weeks to the extent that she can barely walk inside the house and gets short of breath. She does not have any fever or chills, no night sweats. She recently had a PFT done which showed moderate to severe obstructive as well as restrictive lung disease with decrease in her diffusion capacity. She came to the hospital with worsening of her shortness of breath. She had a blood gas done which showed pH 7.27, CO2 64, PO2 100 on 100% FIO2. She was put on BiPAP and repeat blood gas was pH 7.31, PCO2 59, PO2 64 on 40% FIO2. She is otherwise alert, awake, follows commands. Her daughter and son-in-law are at the bedside. PAST MEDICAL HISTORY 1. Hypertension. 2. Diabetes mellitus. 3. Chronic kidney disease. 4. Symptoms suggestive of sleep apnea. 5. History of tubal ligation. MEDICATIONS She is currently takin. Levaquin 750 mg q.48h. 2. Solu-Medrol 60 mg q.6h. 3. Protonix 40 mg a day. 4. Heparin 5000 units q.8h. 5. Pravastatin 80 mg a day. 6. Albuterol/Atrovent nebulizer treatment. ALLERGIES No known drug allergies. SOCIAL HISTORY She is a , lives alone. She is retired. 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 SOCIAL HISTORY She has a remote history of smoking which she quit 30 years ago. FAMILY HISTORY She had five children, one with heart disease. REVIEW OF SYSTEMS She walks only short distances in the house. She has been obese most of her life. Does not sleep well, feels tired and snores and has excessive sleepiness during the daytime. No DVT or pulmonary embolism. No malignancy. PHYSICAL EXAMINATION GENERAL: A morbidly obese female with mild shortness of breath. VITAL SIGNS: Blood pressure 158/73, heart rate 85, respirations 22, temperature 97.6. HEENT: Pupils are equal and reactive to light. Oral mucosa is normal. NECK: Supple. JVP not raised. CHEST: Equal air entry. She has faint rhonchi. CARDIOVASCULAR: S1, S2 normal. ABDOMEN: Obese, nontender. Bowel sounds are present. EXTREMITIES: 1+ pedal edema. 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 No focal deficit. IMPRESSION 1. Hypercapnic and hypoxic respiratory failure. 2. Obesity. 3. Hypoventilation syndrome and possible obstructive sleep apnea. 4. CHF. 5. Chronic kidney disease. 6. Hypertension. 7. Diabetes mellitus. PLAN Will maintain her on BiPAP, wean oxygen to keep the saturation between 88 and 92%. Continue aerosol treatment and IV steroids. Monitor renal function closely. She will need a sleep study as an outpatient. Further treatment will depend on the course in the hospital. Thank you, Dr. Vonnie Booth, for this consult. MD BAUTISTA Rivera/RADHA /2:53 PM /3:02 PM
--- NOTE | 2016-03-20 15:24 | EC ---
Study Study Date:03/20/2016 STUDY CONCLUSIONS SUMMARY - Procedure narrative: Transthoracic echocardiography. Image quality was suboptimal. Scanning was performed from the parasternal, apical, and subcostal acoustic windows. - Left ventricle: The cavity size was normal. Wall thickness was increased in a pattern of mild LVH. Systolic function was normal. The estimated ejection fraction was in the range of 55% to 60%. Wall motion was normal; there were no regional wall motion abnormalities. - Aortic valve: Valve area: 2.55cm^2 (Vmax). - Pulmonic valve: Mild regurgitation. If LV function is below 40, please consider prescribing an ACEI or ARB or document rationale for non-use. PROCEDURE DATA STUDY STATUS: Elective. Procedure: Transthoracic echocardiography. Image quality was suboptimal. Scanning was performed from the parasternal, apical, and subcostal acoustic windows. Study completion: The patient tolerated the procedure well. Transthoracic echocardiography. M-mode, complete 2D, complete spectral Doppler, and color Doppler. Height: Height: 65in. Weight: Weight: 243.5lb. Body mass index: BMI: 40.6kg/m^2. Body surface area: BSA: 2.15m^2. Patient status: Inpatient. CARDIAC ANATOMY LEFT VENTRICLE: The cavity size was normal. Wall thickness was increased in a pattern of mild LVH. Systolic function was normal. The estimated ejection fraction was in the range of 55% to 60%. Wall motion was normal; there were no regional wall motion abnormalities. AORTIC VALVE: Trileaflet; normal thickness leaflets. Doppler: Transvalvular velocity was within the normal range. There was no stenosis. No regurgitation. Valve area: 2.55cm^2 (Vmax). Indexed valve area: 1.19cm^2/m^2 (Vmax). AORTA: Aortic root: The aortic root was poorly visualized and mildly dilated. MITRAL VALVE: Structurally normal valve. Doppler: Transvalvular velocity was within the normal range. There was no evidence for stenosis. No regurgitation. Peak gradient: 3mm Hg (D). LEFT ATRIUM: The atrium was normal in size. RIGHT VENTRICLE: The cavity size was normal. Wall thickness was normal. PULMONIC VALVE: Doppler: Transvalvular velocity was within the normal range. There was no evidence for stenosis. Mild regurgitation. TRICUSPID VALVE: Structurally normal valve. Doppler: Transvalvular velocity was within the normal range. No regurgitation. PULMONARY ARTERY: The main pulmonary artery was normal-sized. Systolic pressure was within the normal range. RIGHT ATRIUM: The atrium was normal in size. PERICARDIUM: There was no pericardial effusion. SYSTEMIC VEINS: Inferior vena cava: The vessel was normal in size. Patient weight: 243.5lb _Ejection fraction:_ 65-75% _Fractional shortening:_ 32% up to 5Kg 5-11.5Kg 11.6-22.9Kg 23-45Kg 45-57Kg Aortic Root 7-13 <17 13-22 17-27 17-27 LA diam 6-13 <23 24-38 33-47 37-40 RVID 10-17 7-15 7-15 7-18 8-17 LVIDd 12-22 <32 24-38 33-47 37-40 LVPW 2-4 3-6 5-7 6-8 7-8 IVS 2-4 3-6 5-7 6-8 7-8 BASIC MEASUREMENTS ADULT NORMAL Left ventricle LV internal dimension, ED, chordal 48.6 mm 43-52 level, PLAX LV internal dimension, ES, chordal 33.6 mm 23-38 level, PLAX Fractional shortening, chordal level, 31 % >29 PLAX LV posterior wall thickness, ED 9.69 mm IVS/LVPW ratio, ED 1.16 <1.3 Ventricular septum Septal thickness, ED 11.2 mm Aortic valve Leaflet separation 18 mm 15-26 Aorta Ascending aorta anterior-posterior 44 mm diameter, S BASIC MEASUREMENTS ADULT NORMAL Aortic valve Leaflet separation 18 mm 15-26 Aorta Root diameter, ED *39 mm 20-37 Left atrium Anterior-posterior dimension, ES 37 mm 19-40 Anterior-posterior dimension index, ES 1.72 cm/m^2 <2.2 LA/aortic root ratio 0.95 DOPPLER MEASUREMENTS ADULT NORMAL Aortic valve Peak velocity, S 111 cm/s Valve area, Vmax 2.55 cm^2 Valve area index, Vmax 1.19 cm^2/m^2 Mitral valve Peak E-wave velocity 80.9 cm/s Peak A-wave velocity 106 cm/s Deceleration time 222 ms 150-230 Peak gradient, D 3 mm Hg Peak E/A ratio 0.8 Pulmonic valve Peak velocity, S 110 cm/s Regurgitant velocity, ED 183 cm/s LEGEND: Mean values are shown as u=mean value. Asterisk (*) bass values outside specified normal range. Prepared and signed by Gabe Gastelum-[id number]
[2016-03-20] MEDS: SODIUM CHLOR 0.9% 1000 ML INJ 1,000 ML IV SCH (15:39)
[2016-03-20 15:54] LABS: BLOOD GAS BASE EXCESS 2.6 mmol/L (-2-2); BLOOD GAS CARBOXYHEMOGLOBIN 1.5 % (0-4); BLOOD GAS HCO3 28 mmol/L (22-26); BLOOD GAS METHEMOGLOBIN 1.2 % (0-2); BLOOD GAS O2 HGB SATURATION 91 % (90-100); BLOOD GAS OXYGEN CONTENT 13.8 Vol % (12.0-20.0); BLOOD GAS PCO2 58 mmHg (38-42); BLOOD GAS PO2 74 mmHg (61-120); BLOOD GAS TOTAL HGB 10.7 G/DL (12.0-16.0); TEMP CORR TO 98.6
[2016-03-20 15:55] LABS: DRAW SITE RT RADIAL; FIO2 35 %; NUMBER OF ARTERIAL PUNCTURES 1; OXYGEN DEVICE BIPAP; STAT NO; ULNAR PULSE PRESENT; VENT SETTINGS IPAP+18/ EPAP+8
--- NOTE | 2016-03-20 18:16 | EKG ---
Date Performed: 03/19/2016 Time Performed: 16:02:59 PTAGE: 66 years EKG: Sinus rhythm WITH SINUS ARRHYTHMIA POSSIBLE LEFT ATRIAL ENLARGEMENT Poor R wave progression with a late transitio n. Nonspecific ST-T wave changes. When compared to PREVIOUS TRACING , likely no significant change. ACUTE CO PREVIOUS TRACIN08/23 13.39.20 DOCTOR: Mellisa Munguia Interpretating Date/Time 03/20/2016 18:15:05
[2016-03-20] MEDS: PRAVASTATIN SOD 80 MG TAB PO SCH (20:04)
[2016-03-20] MEDS: ACETAMINOPHEN 325 MG TAB PO PRN (20:13)
[2016-03-21] VITALS (15 sets, daily range): BP systolic 149–180; BP diastolic 67–87; PULSE 83–108; RESP 18–34; TEMP 98.3–98.9; O2SAT 93–99
[2016-03-21] MEDS: INSULIN NovoLIN REGULAR SUPPLEMENTAL SCALE SQ SCH ×5 (00:33→23:19)
[2016-03-21] MEDS: RESP: ALBUTEROL 2.5 MG/IPRATROPIUM 0.5 MG NEB (SCH) INH ×5 (03:38→20:30)
[2016-03-21] MEDS: CHLORHEXIDINE GLUCONATE 2 % 1 PACK (2 CLOTHS) TOP SCH (04:00)
[2016-03-21] MEDS: PANTOPRAZOLE SODIUM 40 MG VIAL IV PUSH SCH (05:43)
[2016-03-21] MEDS: ACETAMINOPHEN 325 MG TAB PO PRN (05:43)
[2016-03-21] MEDS: HEPARIN SODIUM - SQ 10,000 UNITS/ML VIAL SQ SCH ×3 (05:44→20:52)
[2016-03-21] MEDS: methylPREDNISolone SOD SUCC 125 MG/2 ML VIAL IV PUSH SCH ×4 (05:46→20:51)
[2016-03-21 06:42] LABS: AUTOMATED NEUTROPHIL # 4.9 TH/MM3 (1.8-7.7); BASOPHIL % 0.1 % (0.0-2.0); HEMATOCRIT 32.9 % (35.0-46.0); HEMO FLAGS DIFF FINAL; LYMPH % 10.2 % (9.0-44.0); LYMPHOCYTE # 0.6 TH/MM3 (1.0-4.8); MEAN CELL VOLUME 86.2 FL (80.0-100.0); MEAN CORPUSCULAR HEMOGLOBIN 27.7 PG (27.0-34.0); MEAN CORPUSCULAR HGB CONC 32.2 % (32.0-36.0); MONO % 5.3 % (0.0-8.0); NEUT % 84.4 % (16.0-70.0); PLATELET COUNT 236 TH/MM3 (150-450); RED BLOOD COUNT 3.82 MIL/MM3 (4.00-5.30); RED CELL DISTRIBUTION WIDTH 14.5 % (11.6-17.2); WHITE BLOOD COUNT 5.8 TH/MM3 (4.0-11.0)
[2016-03-21 06:58] LABS: BICARBONATE 27.9 MEQ/L (21.0-32.0); POTASSIUM 4.7 MEQ/L (3.5-5.1)
--- NOTE | 2016-03-21 08:07 | HHI.CCPN ---
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 She states her symptoms have been progressive over the last 2- 3 months but have been significantly worse over the last 3 days. She gets short of breath with getting out of her bed and going to the recliner. She has a nonproductive cough. No hemoptysis. No fevers or chills. No known ill contacts. She has been referred to pulmonology and was seen by Dr. Womack and had pulmonary function testing performed on 03/14/16 but has not yet had follow- up regarding results.. She is not on home oxygen. She has been evaluated by Dr. Rodriguez with cardiology and had previous plans for stress test 03/24/16. She denies any chest pain. Troponin is 0.02. BNP is 57. She has acute hypoxemic and hypercapnic respiratory failure with pH of 7.27/PaCO2 of 64/PA O2 of 100/bicarbonate 29 03/20 Patient is on BIPAP 03/11 with 40% FIO2. Afebrile. Awake and alert. 03/21 Patient used BIPAP for couple hrs overnight now on 3L oxygen with good sats. Awake and alert. Renal function worse today with Cr: 2.4 from 1.8 with UO 650ml in 24 hrs. Afebrile. Objective Vital Signs Date Time Temp Pulse Resp B/P Pulse Ox O2 Delivery O2 Flow Rate FiO2 03/21/16 07:43 94 Nasal Cannula 3.00 03/21/16 06:00 83 03/21/16 04:00 98.5 18 149/67 03/21/16 03:40 35 Intake and Output 03/20/16 03/20/16 03/21/16 08:00 16:00 00:00 Intake Total 64 ml 60 ml 320 ml Output Total 150 ml 150 ml 200 ml Balance -86 ml -90 ml 120 ml Result Diagram: 03/21/16 0536 03/21/16 0536 Other Results Laboratory Tests Test 03/20/16 03/20/16 03/20/16 03/21/16 11:20 12:55 15:45 05:36 Blood Gas Puncture Site RT RADIAL RT RADIAL Blood Gas Patient Temperature 98.6 98.6 Blood Gas HCO3 28 mmol/L 28 mmol/L Blood Gas Base Excess 1.4 mmol/L 2.6 mmol/L Blood Gas Oxygen Saturation 81 % 91 % Arterial Blood pH 7.28 7.31 Arterial Blood Partial 61 mmHg 58 mmHg Pressure CO2 Arterial Blood Partial 54 mmHg 74 mmHg Pressure O2 Arterial Blood Oxygen Content 12.7 Vol % 13.8 Vol % Arterial Blood 1.4 % 1.5 % Carboxyhemoglobin Arterial Blood Methemoglobin 1.3 % 1.2 % Blood Gas Hemoglobin 11.1 G/DL 10.7 G/DL Oxygen Delivery Device NASAL CANNULA BIPAP Blood Gas Liter Flow 4 L/M Potassium Level 5.2 MEQ/L 4.7 MEQ/L Blood Gas Ventilator Setting IPAP+18/ EPAP+8 Blood Gas Inspired Oxygen 35 % White Blood Count 5.8 TH/MM3 Red Blood Count 3.82 MIL/MM3 Hemoglobin 10.6 GM/DL Hematocrit 32.9 % Mean Corpuscular Volume 86.2 FL Mean Corpuscular Hemoglobin 27.7 PG Mean Corpuscular Hemoglobin 32.2 % Concent Red Cell Distribution Width 14.5 % Platelet Count 236 TH/MM3 Mean Platelet Volume 8.4 FL Neutrophils (%) (Auto) 84.4 % Lymphocytes (%) (Auto) 10.2 % Monocytes (%) (Auto) 5.3 % Eosinophils (%) (Auto) 0.0 % Basophils (%) (Auto) 0.1 % Neutrophils # (Auto) 4.9 TH/MM3 Lymphocytes # (Auto) 0.6 TH/MM3 Monocytes # (Auto) 0.3 TH/MM3 Eosinophils # (Auto) 0.0 TH/MM3 Basophils # (Auto) 0.0 TH/MM3 CBC Comment DIFF FINAL Differential Comment Sodium Level 141 MEQ/L Chloride Level 106 MEQ/L Carbon Dioxide Level 27.9 MEQ/L Anion Gap 7 MEQ/L Blood Urea Nitrogen 37 MG/DL Creatinine 2.42 MG/DL Estimat Glomerular Filtration 24 ML/MIN Rate Random Glucose 176 MG/DL Calcium Level 8.7 MG/DL Imaging Last Impressions Chest X-Ray 03/20/16 0600 Signed Impressions: Service Date/Time: Sunday, March 20, 2016 05:16 - CONCLUSION: Unchanged tiny effusions and bibasilar consolidation. Mitchell Collins Jr., MD CT Angiography 03/19/16 1601 Signed Impressions: Service Date/Time: Saturday, March 19, 2016 17:52 - CONCLUSION: 1. No pulmonary embolus. 2. Moderate bibasilar atelectasis and small bilateral pleural effusions. 3. Nonspecific upper limits of normal to mildly enlarged mediastinal lymph nodes. 4. Left ventricular enlargement. Chintan Motley MD Objective Remarks GENERAL: Well-nourished, well-developed obese patient who is lying in bed in no acute distress SKIN: Warm and dry. HEAD: Atraumatic. Normocephalic. EYES: Pupils equal and round. No scleral icterus. ENT: BiPAP mask n place. NECK: Trachea midline. No JVD. CARDIOVASCULAR: Regular rate and rhythm. No murmurs rubs or gallops. RESPIRATORY: No accessory muscle use. Clear to auscultation. Breath sounds equal bilaterally. GASTROINTESTINAL: Abdomen soft, non-tender, nondistended. Hepatic and splenic margins not palpable. MUSCULOSKELETAL: Extremities without clubbing, cyanosis, or edema. No obvious deformities. NEUROLOGICAL: Awake and alert. No obvious cranial nerve deficits. Motor grossly within normal limits. Five out of 5 muscle strength in the arms and legs. Normal speech. A/P Assessment and Plan NEURO: Awake, alert, avoid sedatives RESP: Acute hypoxemic and hypercapnic respiratory failure Bronchiectasis Remote history of tobacco abuse Continue with oxygen keep sat >92% Bronchodilators, solumederol 60mg Q6 NIPPV PRN for resp distress CTA demonstrates no evidence of pulmonary embolism. There are bibasilar opacities and subcarinal and mediastinal lymph nodes. Continue with Levaquin Pulmonology- DAurelia Castellon CV: Hypertension Hyperlipidemia Chronic systolic heart failure Resume Norvasc 10mg daily, Monitor HR and BP keep MAP>65mmhg Pravastatin 80 mg by mouth daily at bedtime. Troponin negative and BNP 57. Echo showed EF 55-60%, no RWMA Had stress SPECT with anterolateral ischemia but cardiac catheterization 08/26/15 showed normal coronaries. GI: Morbid obesity Alessandra-Colace twice a day for bowel regimen. On PO heart healthy diet FEN/RENAL: CKD stage II Monitor renal function. I/O's, electrolytes replacement as needed. Renal function worse today with Cr: 2.42 from 1.8 and UO 650ml in 24 hrs Renal davon, check renal US, on NS@42ml/hr ID: Levaquin for atypical coverage. Monitor for signs of infections ( Fever,, WBC) Follow up blood culture 03/19/16- NGTD HEME: No acute hematologic issues. Monitor CBC. ENDO: Diabetes mellitus Medium dose SSI for glycemic control MSK: Gout PROPH: Heparin 5000 units SQ Q8 for DVT prophylaxis. Protonix 40 mg IV daily for stress ulcer prophylaxis. ACCESS: Peripheral IV providing adequate access. Level 3 Shan Yen MD Mar 21, 2016 08:07 Shan Yen MD Mar 21, 2016 08:07
[2016-03-21] MEDS: DOCUSATE SODIUM 50 MG/SENNA 8.6 MG TAB PO SCH ×2 (09:27→20:51)
[2016-03-21] MEDS: SODIUM CHLORIDE 0.9% FLUSH 5 ML FLUSH IV FLUSH SCH ×2 (09:28→20:51)
[2016-03-21] MEDS ORDERED: ACETAMINOPHEN 325 MG TAB PO PRN (10:30)
--- NOTE | 2016-03-21 10:40 | RADRPT ---
EXAM DATE/TIME: 03/21/2016 09:25 [place] COMPARISON: No previous studies available for comparison. INDICATIONS : Increased BUN/Creatinine. MEDICAL HISTORY : Hypertension. Congestive heart failure. Diabetes. Anemia. SURGICAL HISTORY : Tubal ligation. ENCOUNTER: Initial ACUITY: 1 day PAIN SCORE: 0/10 LOCATION: Bilateral flank MEASUREMENTS: RIGHT KIDNEY: 10.0 x 4.7 x 5.1 cm LEFT KIDNEY: 9.7 x 4.8 x 5.2 cm FINDINGS: RIGHT KIDNEY: Mild diffuse increase in renal cortical echogenicity. No evidence of hydronephrosis. Tiny cysts. LEFT KIDNEY: Diffuse mild increase in renal cortical echogenicity. No hydronephrosis. 15 mm cyst in the lower pole . Tiny cysts elsewhere. BLADDER: Decompressed with Good catheter CONCLUSION: Increased renal cortical echogenicity indicating medical renal disease. No hydronephrosis. Chintan Sumner MD on March 21, 2016 at 10:35 Board Certified Radiologist. This report was verified electronically.
[2016-03-21] MEDS: hydrALAZINE HCL 20 MG/ML VIAL IV PUSH PRN ×2 (13:59→17:31)
[2016-03-21] MEDS ORDERED: oxyCODONE/ACETAMINOPHEN 5 MG/325 MG TAB PO ONE (14:00)
[2016-03-21] MEDS: SODIUM CHLOR 0.9% 1000 ML INJ 1,000 ML IV SCH (18:23)
--- NOTE | 2016-03-21 19:31 | HHI.PR ---
Subjective Remarks 66 YO AA female with HTN,DM, SOB Had hypercapnoic RF, much better Weaned to NC C/O Headache No N,V Objective Vital Signs Vital Signs Date Time Temp Pulse Resp B/P Pulse Ox O2 Delivery O2 Flow Rate FiO2 03/21/16 18:00 95 03/21/16 16:00 108 20 173/81 99 03/21/16 16:00 97 03/21/16 14:00 104 03/21/16 12:00 96 20 180/76 98 03/21/16 12:00 96 03/21/16 10:00 96 03/21/16 08:00 94 03/21/16 08:00 94 22 179/87 94 03/21/16 07:43 94 Nasal Cannula 3.00 03/21/16 06:00 83 03/21/16 04:00 85 03/21/16 04:00 98.5 85 18 149/67 94 03/21/16 03:40 96 35 03/21/16 02:00 87 03/21/16 00:00 98.9 91 24 160/73 94 03/21/16 00:00 91 03/20/16 23:36 97 35 03/20/16 22:00 95 03/20/16 20:00 95 03/20/16 20:00 98.4 95 22 164/67 94 03/20/16 19:37 93 Nasal Cannula 3.00 I/O 03/20/16 03/20/16 03/20/16 03/21/16 03/21/16 03/21/16 07:00 15:00 23:00 07:00 15:00 23:00 Intake Total 64 ml 60 ml 320 ml 266 ml 1174 ml Output Total 150 ml 150 ml 200 ml 300 ml 600 ml Balance -86 ml -90 ml 120 ml -34 ml 574 ml Intake Oral 60 ml 120 ml 60 ml 480 ml IV Total 64 ml 200 ml 206 ml 694 ml Output Urine Total 150 ml 150 ml 200 ml 300 ml 600 ml # Bowel Movements 0 1 0 Result Diagram: 03/21/1636 03/21/16 0536 Objective Remarks GENERAL: WBWN AA female, NAD SKIN: Warm and dry. HEAD: Normocephalic. EYES: No scleral icterus. No injection or drainage. NECK: Supple, trachea midline. No JVD or lymphadenopathy. CARDIOVASCULAR: Regular rate and rhythm without murmurs, gallops, or rubs. RESPIRATORY: Breath sounds equal bilaterally. No accessory muscle use. GASTROINTESTINAL: Abdomen soft, non-tender, nondistended. MUSCULOSKELETAL: No cyanosis, or edema. BACK: Nontender without obvious deformity. No CVA tenderness. A/P Assessment and Plan Hypercapnoic RF improved Obesity Hypoventilation synd Lilkly NICOLE HTN DM CHF PLAN: Wean 02 IV Solumedrol Monitor BS PFT when better Will need Sleep study as out patient Giuseppe Castellon MD Mar 21, 2016 19:31
[2016-03-21] MEDS: LEVOFLOXACIN 750 MG PREMIX INJ 150 ML IV SCH (20:51)
[2016-03-21] MEDS: PRAVASTATIN SOD 80 MG TAB PO SCH (20:52)
[2016-03-21] MEDS: METOPROLOL TARTRATE 25 MG TAB PO SCH (23:18)
[2016-03-22] VITALS (10 sets, daily range): BP systolic 163–180; BP diastolic 72–88; PULSE 87–101; RESP 14–28; TEMP 97.5–98.6; O2SAT 92–98
[2016-03-22] MEDS: RESP: ALBUTEROL 2.5 MG/IPRATROPIUM 0.5 MG NEB (SCH) INH ×5 (00:08→16:00)
[2016-03-22] MEDS: methylPREDNISolone SOD SUCC 125 MG/2 ML VIAL IV PUSH SCH ×3 (02:39→14:49)
[2016-03-22] MEDS: LABETALOL HCL 100 MG/20 ML VIAL IV PUSH PRN ×2 (02:39→08:24)
[2016-03-22] MEDS ORDERED: TEMAZEPAM 15 MG CAP PO PRN (03:00)
[2016-03-22] MEDS: CHLORHEXIDINE GLUCONATE 2 % 1 PACK (2 CLOTHS) TOP SCH (03:22)
[2016-03-22] MEDS: HEPARIN SODIUM - SQ 10,000 UNITS/ML VIAL SQ SCH ×3 (06:37→23:34)
[2016-03-22] MEDS: INSULIN NovoLIN REGULAR SUPPLEMENTAL SCALE SQ SCH ×4 (06:37→23:52)
[2016-03-22] MEDS: PANTOPRAZOLE SODIUM 40 MG VIAL IV PUSH SCH (06:37)
[2016-03-22 06:55] LABS: AUTOMATED NEUTROPHIL # 7.4 TH/MM3 (1.8-7.7); BASOPHIL % 0.1 % (0.0-2.0); HEMATOCRIT 33.3 % (35.0-46.0); HEMO FLAGS DIFF FINAL; LYMPHOCYTE # 0.5 TH/MM3 (1.0-4.8); MEAN CELL VOLUME 86.2 FL (80.0-100.0); MEAN CORPUSCULAR HEMOGLOBIN 28.3 PG (27.0-34.0); MEAN CORPUSCULAR HGB CONC 32.8 % (32.0-36.0); MONO % 2.2 % (0.0-8.0); NEUT % 91.7 % (16.0-70.0); PLATELET COUNT 247 TH/MM3 (150-450); RED BLOOD COUNT 3.86 MIL/MM3 (4.00-5.30); RED CELL DISTRIBUTION WIDTH 14.8 % (11.6-17.2); WHITE BLOOD COUNT 8.1 TH/MM3 (4.0-11.0)
[2016-03-22 07:10] LABS: BICARBONATE 24.5 MEQ/L (21.0-32.0); POTASSIUM 4.8 MEQ/L (3.5-5.1)
[2016-03-22] MEDS: SODIUM CHLORIDE 0.9% FLUSH 5 ML FLUSH IV FLUSH SCH ×2 (08:26→23:50)
[2016-03-22] MEDS: DOCUSATE SODIUM 50 MG/SENNA 8.6 MG TAB PO SCH ×2 (08:26→23:33)
[2016-03-22] MEDS: SODIUM CHLOR 0.9% 1000 ML INJ 1,000 ML IV SCH ×2 (09:38→23:35)
--- NOTE | 2016-03-22 10:16 | HHI.CCPN ---
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 She states her symptoms have been progressive over the last 2- 3 months but have been significantly worse over the last 3 days. She gets short of breath with getting out of her bed and going to the recliner. She has a nonproductive cough. No hemoptysis. No fevers or chills. No known ill contacts. She has been referred to pulmonology and was seen by Dr. Womack and had pulmonary function testing performed on 03/14/16 but has not yet had follow- up regarding results.. She is not on home oxygen. She has been evaluated by Dr. Rodriguez with cardiology and had previous plans for stress test 03/24/16. She denies any chest pain. Troponin is 0.02. BNP is 57. She has acute hypoxemic and hypercapnic respiratory failure with pH of 7.27/PaCO2 of 64/PA O2 of 100/bicarbonate 29 03/20 Patient is on BIPAP 18/8 with 40% FIO2. Afebrile. Awake and alert. 03/21 Patient used BIPAP for couple hrs overnight now on 3L oxygen with good sats. Awake and alert. Renal function worse today with Cr: 2.4 from 1.8 with UO 650ml in 24 hrs. Afebrile. 03/22: Patient has been on nasal cannula since yesterday, did not use BiPAP overnight. On 4 L nasal cannula. Sitting up in bed, not in any distress. Objective Vital Signs Date Time Temp Pulse Resp B/P Pulse Ox O2 Delivery O2 Flow Rate FiO2 03/22/16 08:38 98 Nasal Cannula 4.00 03/22/16 06:00 94 03/22/16 04:00 97.9 14 166/83 03/21/16 03:40 35 Intake and Output 03/21/16 03/21/16 03/22/16 08:00 16:00 00:00 Intake Total 266 ml 1174 ml 897 ml Output Total 300 ml 600 ml 900 ml Balance -34 ml 574 ml -3 ml Result Diagram: 03/22/1628 03/22/16 05 Imaging Last Impressions Chest X-Ray 03/20/16 06 Signed Impressions: Service Date/Time: Sunday, March 20, 2016 05:16 - CONCLUSION: Unchanged tiny effusions and bibasilar consolidation. Mitchell Collins Jr., MD CT Angiography 03/19/16 1601 Signed Impressions: Service Date/Time: Saturday, March 19, 2016 17:52 - CONCLUSION: 1. No pulmonary embolus. 2. Moderate bibasilar atelectasis and small bilateral pleural effusions. 3. Nonspecific upper limits of normal to mildly enlarged mediastinal lymph nodes. 4. Left ventricular enlargement. Chintan Motley MD Objective Remarks GENERAL: Well-nourished, well-developed obese patient who is sitting up in the ED gurney conversing with family and alert on NC 4 lit/min. SKIN: Warm and dry. HEAD: Atraumatic. Normocephalic. EYES: Pupils equal and round. No scleral icterus. ENT: BiPAP mask n place. NECK: Trachea midline. No JVD. CARDIOVASCULAR: Regular rate and rhythm. No murmurs rubs or gallops. RESPIRATORY: No accessory muscle use. Bibasilar coarse rales. GASTROINTESTINAL: Abdomen soft, non-tender, nondistended. BS sluggish. MUSCULOSKELETAL: Extremities without clubbing, cyanosis. 1+ pedal edema. NEUROLOGICAL: Awake and alert. No obvious cranial nerve deficits. Motor grossly within normal limits. A/P Assessment and Plan NEURO: Awake, alert, avoid sedatives RESP: Acute hypoxemic and hypercapnic respiratory failure Bronchiectasis Remote history of tobacco abuse Continue with oxygen keep sat >92% Bronchodilators, solumedrol 60mg Q6 On Nasal cannula O2. BIPAP prn. CTA demonstrates no evidence of pulmonary embolism. There are bibasilar opacities and subcarinal and mediastinal lymph nodes. Continue with Levaquin Pulmonology- DAurelia Castellon CV: Hypertension Hyperlipidemia Chronic systolic heart failure Resume Norvasc 10mg daily, Monitor HR and BP keep MAP>65mmhg Pravastatin 80 mg by mouth daily at bedtime. Troponin negative and BNP 57. Echo showed EF 55-60%, no RWMA Had stress SPECT with anterolateral ischemia but cardiac catheterization 08/26/15 showed normal coronaries. GI: Morbid obesity Alessandra-Colace twice a day for bowel regimen. On PO heart healthy diet FEN/RENAL: CKD stage II Monitor renal function. I/O's, electrolytes replacement as needed. Renal function worse today with Cr: 2.42 from 1.8 and UO 650ml in 24 hrs Renal davon, check renal US, on NS@42ml/hr ID: Levaquin for atypical coverage. Monitor for signs of infections ( Fever,, WBC) Follow up blood culture 03/19/16- NGTD HEME: No acute hematologic issues. Monitor CBC. ENDO: Diabetes mellitus Medium dose SSI for glycemic control MSK: Gout PROPH: Heparin 5000 units SQ Q8 for DVT prophylaxis. Protonix 40 mg IV daily for stress ulcer prophylaxis. ACCESS: Peripheral IV providing adequate access. Patient will be transferred out of ICU to hospitalist service for further medical management. Critical care signing off. Please reconsult if needed. Enoch Naqvi MD Mar 22, 2016 10:16
--- NOTE | 2016-03-22 11:41 | PD.CONS ---
HPI Service Nephrology Consult Requested By Reason for Consult CHRIS on CKD Primary Care Physician Marquita Nath MD History of Present Illness This is a 66 y/o AAF patient who was admitted for progressively worsening shortness of breath, over past 3 months. Hx of CKD 3, baseline creatinine from March 2015 of 1.48, GFR 42. Other PMH of DM, HTN, CHF with EF 55-60%. She had Ct chest on 03/19, negative for PE. Creatinine was at baseline on admission, kina to 2.42, down slightly to 1.96 as of today. She was on BiPap for hypercapnic, hypoxemic respiratory failure, has since been on nasal cannula with normal saturations. She does not demonstrate fluid overload. We were consulted for renal management. OF note she was recently placed on Diclofenac for pain control by her PCP, was also given Lasix 80 mg IV in the ER, and is being treated for pneumonia. She is a full code. (Elba Vu) Review of Systems Constitutional: DENIES: Fatigue, Fever, Chills Respiratory: COMPLAINS OF: Cough, Shortness of breath Cardiovascular: COMPLAINS OF: Dyspnea on Exertion, DENIES: Chest pain, Lower Extremity Edema (Elba Vu) Past Family Social History Allergies: Coded Allergies: No Known Allergies (Verified , 03/19/16) Past Medical History Diabetes CHF Hypertension CKD 3 Past Surgical History Tubal Cardiac cath EGD Reported Medications Dulera 120 Act Inh (Mometasone-Formoterol 120 Act Inh) 100-5 Mcg/Act Inh 2 Puff INH BID Naproxen 500 Mg Tab 500 Mg PO BID PRN Vitamin D (Cholecalciferol) 1,000 Unit Tab 1,000 Units PO DAILY Simvastatin 10 Mg Tab 10 Mg PO DAILY Losartan (Losartan Potassium) 25 Mg Tab 25 Mg PO DAILY Diclofenac Sodium DR (Diclofenac Sodium) 75 Mg Tabdr 75 Mg PO DAILY Amlodipine (Amlodipine Besylate) 10 Mg Tab 10 Mg PO DAILY Allopurinol 300 Mg Tab 300 Mg PO DAILY Atenolol 50 Mg Tab 50 Mg PO DAILY Invokamet (Canagliflozin-Metformin) 150-1,000 Mg Tab 1 Tab PO BID Take with meals. Avoid ethanol. Active Ordered Medications Current Medications Medications (Trade) Dose Ordered Sig/Bryan Route Start Time Stop Time Status Last Admin (D50w (Vial) Inj) 25 ml UNSCH PRN IV PUSH 03/19/16 18:00 (NovoLIN R SUPPLEMENTAL SCALE) 1 Q6HR SQ 03/19/16 18:00 03/22/16 06:37 (NS Flush) 2 ml UNSCH PRN IV FLUSH 03/19/16 18:00 (NS Flush) 2 ml BID IV FLUSH 03/19/16 21:00 03/22/16 08:26 (Tylenol) 650 mg Q6H PRN PO 03/19/16 18:00 03/21/16 05:43 (Zofran Inj) 4 mg Q6H PRN IV 03/19/16 18:00 (Alessandra-Colace) 2 tab BID PO 03/19/16 21:00 03/22/16 08:26 (Heparin Inj) 5,000 units Q8H SQ 03/19/16 22:00 03/22/16 06:37 Miscellaneous Information 1 [id number] XX 03/19/16 18:00 (Chlorhexidine 2% Cloth) 3 pack Taper DAILY@04 TOP 03/20/16 04:00 03/16/17 03:59 03/22/16 03:22 (Chlorhexidine 2% Cloth) 3 pack UNSCH PRN TOP 03/19/16 18:00 (Pravachol) 80 mg HS PO 03/19/16 21:00 03/21/16 20:52 (SoluMEDROL INJ) 60 mg Q6H IV PUSH 03/20/16 09:00 03/22/16 08:26 Pantoprazole Sodium 40 mg 40 mg Q24H IV PUSH 03/20/16 06:00 03/22/16 06:37 Levofloxacin/ Dextrose 150 ml @ 100 mls/hr Q48H IV 03/21/16 21:00 03/21/16 20:51 (NS 1000 ml Inj) 1,000 ml @ 42 mls/hr [id number] IV 03/20/16 10:00 03/21/16 18:23 (Norvasc) 10 mg DAILY PO 03/21/16 11:00 03/22/16 08:26 (Apresoline Inj) 10 mg Q6H PRN IV PUSH 03/21/16 10:30 03/21/16 17:31 (Tylenol) 650 mg Q6H PRN PO 03/21/16 10:30 (Roxicodone) 5 mg Q6H PRN PO 03/21/16 20:30 03/21/16 20:52 (Lopressor) 25 mg Q12HR PO 03/21/16 22:00 03/21/16 23:18 (Trandate Inj) 10 mg Q6H PRN IV PUSH 03/21/16 22:15 03/22/16 08:24 (Restoril) 15 mg HS PRN PO 03/22/16 03:00 03/22/16 03:22 Family History No hx of renal disorders Social History Non smoker, no ETOH Lives locally, Independent full code retired (Elba Vu) Physical Exam Vital Signs Vital Signs Date Time Temp Pulse Resp B/P Pulse Ox O2 Delivery O2 Flow Rate FiO2 03/22/16 08:38 98 Nasal Cannula 4.00 03/22/16 06:00 94 03/22/16 04:00 97.9 87 14 166/83 95 03/22/16 04:00 87 03/22/16 02:00 90 03/22/16 00:00 98.2 94 28 163/72 93 03/22/16 00:00 94 03/21/16 22:00 108 03/21/16 20:31 95 Nasal Cannula 4.00 03/21/16 20:00 98.3 105 34 163/67 93 03/21/16 20:00 105 03/21/16 18:00 95 03/21/16 16:00 108 20 173/81 99 03/21/16 16:00 97 03/21/16 14:00 104 03/21/16 12:00 96 20 180/76 98 03/21/16 12:00 96 Physical Exam Obese AAF sitting up in chair on nasal cannula awake, oriented S1/S2, regular rate, no murmurs Lungs: bibasilar rales, no wheezing Abd: obese, soft Ext: warm, dry, no edema, pulses strong Laboratory Laboratory Tests Test 03/22/16 05:28 White Blood Count 8.1 Red Blood Count 3.86 Hemoglobin 10.9 Hematocrit 33.3 Mean Corpuscular Volume 86.2 Mean Corpuscular Hemoglobin 28.3 Mean Corpuscular Hemoglobin 32.8 Concent Red Cell Distribution Width 14.8 Platelet Count 247 Mean Platelet Volume 8.3 Neutrophils (%) (Auto) 91.7 Lymphocytes (%) (Auto) 6.0 Monocytes (%) (Auto) 2.2 Eosinophils (%) (Auto) 0.0 Basophils (%) (Auto) 0.1 Neutrophils # (Auto) 7.4 Lymphocytes # (Auto) 0.5 Monocytes # (Auto) 0.2 Eosinophils # (Auto) 0.0 Basophils # (Auto) 0.0 CBC Comment DIFF FINAL Differential Comment Sodium Level 141 Potassium Level 4.8 Chloride Level 106 Carbon Dioxide Level 24.5 Anion Gap 11 Blood Urea Nitrogen 40 Creatinine 1.96 Estimat Glomerular Filtration 31 Rate Random Glucose 224 Calcium Level 9.1 Date/Time Procedure Status Source Growth 03/19/16 18:45 Aerobic Blood Culture - Preliminary Resulted Blood Peripheral NO GROWTH IN 3 DAYS 03/19/16 18:45 Anaerobic Blood Culture - Preliminary Resulted Blood Peripheral NO GROWTH IN 3 DAYS (Elba Vu) Result Diagram: 03/22/16 0528 03/22/16 0528 Imaging Last 72 hours Impressions Renal Ultrasound 03/21/16 0000 Signed Impressions: Service Date/Time: Monday, March 21, 2016 09:25 - CONCLUSION: Increased renal cortical echogenicity indicating medical renal disease. No hydronephrosis. Chintan Sumner MD Chest X-Ray 03/20/16 0600 Signed Impressions: Service Date/Time: Sunday, March 20, 2016 05:16 - CONCLUSION: Unchanged tiny effusions and bibasilar consolidation. Mitchell Collins Jr., MD Chest X-Ray 03/19/16 1601 Signed Impressions: Service Date/Time: Saturday, March 19, 2016 16:09 - CONCLUSION: Mild bibasilar consolidation and small effusions. Chintan Motley MD CT Angiography 03/19/16 1601 Signed Impressions: Service Date/Time: Saturday, March 19, 2016 17:52 - CONCLUSION: 1. No pulmonary embolus. 2. Moderate bibasilar atelectasis and small bilateral pleural effusions. 3. Nonspecific upper limits of normal to mildly enlarged mediastinal lymph nodes. 4. Left ventricular enlargement. Chintan Motley MD (Elba Vu) Assessment and Plan Problem List: (1) CHRIS (acute kidney injury) Plan: on CKD 3, baseline from March 2015 1.48 has proteinuria, likely diabetic nephropathy, will quantify amount CHRIS likely contrast induced nephropathy, had CT with contrast on 03/19 renal function is improving as of today electrolytes acceptable non oliguric, will have catheter removed continue IVF, NS @ 42 cc/hr monitor renal function daily avoid nephrotoxins inpatient, renally dose medications when appropriate she was advised to stop the diclofenac once discharged (2) DM (diabetes mellitus) Plan: monitor glucose insulin as needed (3) Hypoxia Plan: improving, off BiPap on nasal cannula also being treated for bilateral pneumonia management per medical team, pulmonary following (Elba Vu) Assessment and Plan patient was seen and examined. Agree with above assessment and plan. CHRIS likely contrast induced. In addition, it is noted that she was on Naproxen and Diclofenac, both of which should be discontinued. Furthermore, she was on Metformin, and it should be held until GFR improves beyond 45 (Brenden Easley MD) Elba Vu Mar 22, 2016 11:41 Brenden Easley MD Mar 22, 2016 19:21
[2016-03-22] MEDS: METOPROLOL TARTRATE 25 MG TAB PO SCH ×2 (14:53→23:33)
--- NOTE | 2016-03-22 18:40 | HHI.PR ---
Subjective Remarks 66 YO AA female with HTN,DM, SOB Had hypercapnoic RF, much better Weaned to NC No N,V Feels much better Weaned to RA Objective Vital Signs Vital Signs Date Time Temp Pulse Resp B/P Pulse Ox O2 Delivery O2 Flow Rate FiO2 03/22/16 15:45 101 03/22/16 12:47 96 Nasal Cannula 2.00 03/22/16 08:38 98 Nasal Cannula 4.00 03/22/16 08:00 98.2 03/22/16 06:00 94 03/22/16 04:00 97.9 87 14 166/83 95 03/22/16 04:00 87 03/22/16 02:00 90 03/22/16 00:00 98.2 94 28 163/72 93 03/22/16 00:00 94 03/21/16 22:00 108 03/21/16 20:31 95 Nasal Cannula 4.00 03/21/16 20:00 98.3 105 34 163/67 93 03/21/16 20:00 105 I/O 03/21/16 03/21/16 03/21/16 03/22/16 03/22/16 03/22/16 07:00 15:00 23:00 07:00 15:00 23:00 Intake Total 266 ml 2071 ml 556 ml 1042 ml Output Total 300 ml 1500 ml 1200 ml 1400 ml Balance -34 ml 571 ml -644 ml -358 ml Intake Oral 60 ml 960 ml 240 ml 720 ml IV Total 206 ml 1111 ml 316 ml 322 ml Output Urine Total 300 ml 1500 ml 1200 ml 1400 ml # Bowel Movements 1 1 0 1 Result Diagram: 03/22/16 0528 03/22/16 0528 Objective Remarks GENERAL: WBWN AA female, NAD SKIN: Warm and dry. HEAD: Normocephalic. EYES: No scleral icterus. No injection or drainage. NECK: Supple, trachea midline. No JVD or lymphadenopathy. CARDIOVASCULAR: Regular rate and rhythm without murmurs, gallops, or rubs. RESPIRATORY: Breath sounds equal bilaterally. No accessory muscle use. GASTROINTESTINAL: Abdomen soft, non-tender, nondistended. MUSCULOSKELETAL: No cyanosis, or edema. BACK: Nontender without obvious deformity. No CVA tenderness. A/P Assessment and Plan Hypercapnoic RF improved Obesity Hypoventilation synd Lilkly NICOLE HTN DM CHF PLAN: Wean 02 Monitor BS PFT when better Will need Sleep study as out patient DC Solumedrol Pred 10 mg bid Giuseppe Castellon MD Mar 22, 2016 18:40
[2016-03-22] MEDS: PRAVASTATIN SOD 80 MG TAB PO SCH (23:33)
[2016-03-22] MEDS: predniSONE 10 MG TAB PO SCH (23:33)
[2016-03-23] VITALS (10 sets, daily range): BP systolic 143–177; BP diastolic 73–87; PULSE 95–109; RESP 16–20; TEMP 98–99.1; O2SAT 90–99
[2016-03-23] MEDS: RESP: ALBUTEROL 2.5 MG/IPRATROPIUM 0.5 MG NEB (SCH) INH ×5 (00:05→15:24)
[2016-03-23] MEDS: PANTOPRAZOLE SODIUM 40 MG VIAL IV PUSH SCH (05:54)
[2016-03-23] MEDS: HEPARIN SODIUM - SQ 10,000 UNITS/ML VIAL SQ SCH ×3 (05:54→22:51)
[2016-03-23] MEDS: INSULIN NovoLIN REGULAR SUPPLEMENTAL SCALE SQ SCH ×3 (05:57→17:54)
[2016-03-23] MEDS: CHLORHEXIDINE GLUCONATE 2 % 1 PACK (2 CLOTHS) TOP SCH (05:57)
[2016-03-23] MEDS: hydrALAZINE HCL 20 MG/ML VIAL IV PUSH PRN (06:48)
[2016-03-23 08:42] LABS: HEMATOCRIT 35.5 % (35.0-46.0); MEAN CELL VOLUME 85.8 FL (80.0-100.0); MEAN CORPUSCULAR HEMOGLOBIN 28.1 PG (27.0-34.0); MEAN CORPUSCULAR HGB CONC 32.7 % (32.0-36.0); PLATELET COUNT 268 TH/MM3 (150-450); RED BLOOD COUNT 4.14 MIL/MM3 (4.00-5.30); RED CELL DISTRIBUTION WIDTH 14.8 % (11.6-17.2); REVIEW FLAG FINAL; WHITE BLOOD COUNT 6.9 TH/MM3 (4.0-11.0)
[2016-03-23] MEDS: SODIUM CHLORIDE 0.9% FLUSH 5 ML FLUSH IV FLUSH SCH ×2 (09:00→20:51)
[2016-03-23 09:11] LABS: BICARBONATE 27.1 MEQ/L (21.0-32.0); POTASSIUM 4.3 MEQ/L (3.5-5.1)
[2016-03-23] MEDS: predniSONE 10 MG TAB PO SCH ×2 (09:38→20:51)
[2016-03-23] MEDS: DOCUSATE SODIUM 50 MG/SENNA 8.6 MG TAB PO SCH ×2 (09:39→20:51)
[2016-03-23] MEDS: METOPROLOL TARTRATE 25 MG TAB PO SCH ×2 (09:39→20:51)
--- NOTE | 2016-03-23 11:48 | HHI.NPPN ---
Subjective Complaints: Obesity, Shortness of Breath General Problems: Hypertension Renal Failure: Acute, Stage III Interval History Patient looks better, sitting up in bed. Shortness of breath improved. Renal function also improved. (Elba Vu) Review of Systems Respiratory Lungs: SOB (Elba Vu) Objective Data Data 03/22/16 03/23/16 19:00 07:00 Intake Total 1042 ml 1080 ml Output Total 1400 ml 1100 ml Balance -358 ml -20 ml Intake Oral 720 ml 1080 ml IV Total 322 ml Output Urine Total 1400 ml 1100 ml # Voids 2 # Bowel Movements 1 1 Vital Signs Date Time Temp Pulse Resp B/P Pulse Ox O2 Delivery O2 Flow Rate FiO2 03/23/16 04:13 98 Nasal Cannula 21 03/23/16 04:00 99.1 95 20 175/87 92 03/23/16 01:00 143/84 03/23/16 00:08 90 21 03/23/16 00:00 98.1 95 20 173/87 95 03/22/16 20:00 97.5 94 16 180/88 92 03/22/16 15:49 98.6 96 20 164/81 92 03/22/16 15:45 101 03/22/16 12:47 96 Nasal Cannula 2.00 (Elba Vu) -: 03/23/16 0750 03/23/16 0750 Imaging Last 72 hours Impressions Renal Ultrasound 03/21/16 0000 Signed Impressions: Service Date/Time: Monday, March 21, 2016 09:25 - CONCLUSION: Increased renal cortical echogenicity indicating medical renal disease. No hydronephrosis. Chintan Sumner MD (Elba Vu) Physical Exam General Appearance: Well Developed, Well Nourished, No Acute Distress, Obese (Elba Vu) Eyes Eye Exam: Pupils Equal (Elba Vu) Throat Throat Exam: Oral Mucosa Bar[place] & Moist (Elba Vu) Pulmonary Resp Exam: Clear Bilaterally, Breath Sounds Equal, No Distress (Elba Vu) Cardiology CV Exam: Regular, Normal Sinus Rhythm, Good Perfusion (Elba Vu) Gastrointestinal/Abdomen GI Exam: Soft, Non-Tender, Bowel Sounds Present (Elba Vu) Musculoskeletal MS Exam: Joints Intact, Good Strength (Elba Vu) Integumentary Skin Exam: Clear, Warm, Dry, Intact, Normal Turgor (Elba Vu) Extremeties Extremities Exam: No Edema, Pedal Pulses Palpable (Elba Vu) Neurologic Neuro Exam: Alert, Awake, Oriented, Speech Clear, Moving All Extremities ( Elba Vu) Assessment/Plan Discussed Condition With: Patient Assessment Summary: Hypertension, CKD Stage III Problem List: (1) CHRIS (acute kidney injury) Plan: on CKD 3, baseline from March 2015 1.48 likely diabetic nephropathy with 1.2 g proteinuria CHRIS likely contrast induced nephropathy, had CT with contrast on 03/19 renal US negative, medical renal disease only renal function improving daily electrolytes acceptable non oliguric will stop iVF, oral intake adequate monitor renal function daily avoid nephrotoxins inpatient, renally dose medications when appropriate she was advised to stop the diclofenac once discharged would benefit from JORGE or ARB once renal function returns to baseline (2) DM (diabetes mellitus) Plan: monitor glucose insulin as needed (3) Hypoxia Plan: improving, on room air also being treated for bilateral pneumonia management per medical team, pulmonary following on prednisone Plan she is cleared for discharge from renal perspective. If discharged, we will follow outpatient (Elba Vu) Plan patient was seen and examined. Renal function has improved. Avoid Diclofenac, Aleve. She can be discharged from renal standpoint. (Brenden Easley MD) Problem Qualifiers (1) DM (diabetes mellitus): Elba Vu Mar 23, 2016 11:48 Brenden Easley MD Mar 23, 2016 16:32
--- NOTE | 2016-03-23 15:40 | HHI.PR ---
Subjective Remarks Pt feeling better today She is currently on RA and not feeling SOB tolerating her diet Objective Vitals Vital Signs Date Time Temp Pulse Resp B/P Pulse Ox O2 Delivery O2 Flow Rate FiO2 03/23/16 04:13 98 Nasal Cannula 21 03/23/16 04:00 99.1 95 20 175/87 92 03/23/16 01:00 143/84 03/23/16 00:08 90 21 03/23/16 00:00 98.1 95 20 173/87 95 03/22/16 20:00 97.5 94 16 180/88 92 03/22/16 15:49 98.6 96 20 164/81 92 03/22/16 15:45 101 03/22/16 03/22/16 03/23/16 14:59 22:59 06:59 Intake Total 1042 ml 360 ml 720 ml Output Total 1400 ml 1100 ml Balance -358 ml 360 ml -380 ml Intake Oral 720 ml 360 ml 720 ml IV Total 322 ml Output Urine Total 1400 ml 1100 ml # Voids 2 # Bowel Movements 1 1 0 Result Diagram: 03/23/16 0750 03/23/16 0750 Other Results Laboratory Tests Test 03/22/16 03/22/16 03/23/16 05:28 12:45 07:50 White Blood Count 8.1 TH/MM3 6.9 TH/MM3 Red Blood Count 3.86 MIL/MM3 4.14 MIL/MM3 Hemoglobin 10.9 GM/DL 11.6 GM/DL Hematocrit 33.3 % 35.5 % Mean Corpuscular Volume 86.2 FL 85.8 FL Mean Corpuscular Hemoglobin 28.3 PG 28.1 PG Mean Corpuscular Hemoglobin 32.8 % 32.7 % Concent Red Cell Distribution Width 14.8 % 14.8 % Platelet Count 247 TH/MM3 268 TH/MM3 Mean Platelet Volume 8.3 FL 8.1 FL Neutrophils (%) (Auto) 91.7 % Lymphocytes (%) (Auto) 6.0 % Monocytes (%) (Auto) 2.2 % Eosinophils (%) (Auto) 0.0 % Basophils (%) (Auto) 0.1 % Neutrophils # (Auto) 7.4 TH/MM3 Lymphocytes # (Auto) 0.5 TH/MM3 Monocytes # (Auto) 0.2 TH/MM3 Eosinophils # (Auto) 0.0 TH/MM3 Basophils # (Auto) 0.0 TH/MM3 CBC Comment DIFF FINAL Differential Comment Sodium Level 141 MEQ/L 143 MEQ/L Potassium Level 4.8 MEQ/L 4.3 MEQ/L Chloride Level 106 MEQ/L 107 MEQ/L Carbon Dioxide Level 24.5 MEQ/L 27.1 MEQ/L Anion Gap 11 MEQ/L 9 MEQ/L Blood Urea Nitrogen 40 MG/DL 38 MG/DL Creatinine 1.96 MG/DL 1.81 MG/DL Estimat Glomerular Filtration 31 ML/MIN 34 ML/MIN Rate Random Glucose 224 MG/DL 148 MG/DL Calcium Level 9.1 MG/DL 9.2 MG/DL Urine Random Creatinine 47 MG/DL Urine Microalbumin/Creatinine 1217 MG/G CRE Ratio Imaging Last Impressions Renal Ultrasound 03/21/16 0000 Signed Impressions: Service Date/Time: Monday, March 21, 2016 09:25 - CONCLUSION: Increased renal cortical echogenicity indicating medical renal disease. No hydronephrosis. Chintan Sumner MD Chest X-Ray 03/20/16 0600 Signed Impressions: Service Date/Time: Sunday, March 20, 2016 05:16 - CONCLUSION: Unchanged tiny effusions and bibasilar consolidation. Mitchell Collins Jr., MD CT Angiography 03/19/16 1601 Signed Impressions: Service Date/Time: Saturday, March 19, 2016 17:52 - CONCLUSION: 1. No pulmonary embolus. 2. Moderate bibasilar atelectasis and small bilateral pleural effusions. 3. Nonspecific upper limits of normal to mildly enlarged mediastinal lymph nodes. 4. Left ventricular enlargement. Chintan Motley MD Objective Remarks General: NAD, AAOx3 Chest: CTA bilaterally Cardiac: Regular Abd: +BS, soft ND/NT Ext: No edema A/P Problem List: (1) Hypoxia Status: Acute Plan: - Pt admitted to [facility] on 03/19/16 with worsening SOB which had been progressive over the last 2-3 months, but have been significantly worse over the 3 days prior to admission. - She has been referred to pulmonology and was seen by Dr. Womack and had pulmonary function testing performed on 03/14/16 but has not yet had follow-up regarding results. - Pt was admitted to the ICU with acute hypoxemic and hypercapnic respiratory failure with pH of 7.27/PaCO2 of 64/PA O2 of 100/bicarbonate 29 - CTA (03/19/16) --> No pulmonary embolus. Moderate bibasilar atelectasis and small bilateral pleural effusions. Nonspecific upper limits of normal to mildly enlarged mediastinal lymph nodes. Left ventricular enlargement. - CXR (03/20/16) --> Unchanged tiny effusion and bibasilar consolidation - Pt was on BiPAP until 03/21/16 and was transferred out of the ICU on NC - Pulmonary medicine is following. - Pt was treated with IV steroids which has been changed to po Prednisone today - Levaquin IV - Pts symptoms felt to likely be related to obesity hypoventilation syndrome and NICOLE - Pt has been weaned to RA today - Pt has an appt with Dr. Dean's office for a sleep study later this month. - Anticipate discharge home tomorrow if pt remains clinically stable. (2) Acute on chronic renal insufficiency Status: Chronic Plan: - Pt with CKD stage 3, with baseline Creatinine from March 2015 1.48 - Pt likely has diabetic nephropathy with 1.2 g proteinuria - Nephrology following and feels that the CHRIS likely secondary to contrast induced nephropathy, due to the CTA with contrast on 03/19 - Renal US negative, medical renal disease only - Renal function improving daily (3) DM (diabetes mellitus) Status: Chronic Plan: - SSI - Accu checks (4) HTN (hypertension) Status: Chronic Plan: - Pts BP has been up and down - Cont. Norvasc 10mg po daily, Metoprolol 25mg Q12H - Pt was also on Losartan 25mg PO daily prior to admission which was held due to renal insuff. - Monitor Assessment and Plan Patient examined. Assessment and plan formulated with Lory Kelly PA-C. I agree with the above. Problem Qualifiers (1) DM (diabetes mellitus): Lory Kelly Mar 23, 2016 15:40 Winston Thrasher DO Mar 25, 2016 10:30
--- NOTE | 2016-03-23 19:20 | HHI.PR ---
Subjective Remarks 66 YO AA female with HTN,DM, SOB Had hypercapnoic RF, much better No N,V Feels much better Weaned to RA Ambulates Objective Vital Signs Vital Signs Date Time Temp Pulse Resp B/P Pulse Ox O2 Delivery O2 Flow Rate FiO2 03/23/16 16:00 98.0 99 18 153/73 99 03/23/16 12:00 98.0 99 16 170/76 93 03/23/16 08:00 98.6 109 16 166/83 97 03/23/16 04:13 98 Nasal Cannula 21 03/23/16 04:00 99.1 95 20 175/87 92 03/23/16 01:00 143/84 03/23/16 00:08 90 21 03/23/16 00:00 98.1 95 20 173/87 95 03/22/16 20:00 97.5 94 16 180/88 92 I/O 03/22/16 03/22/16 03/22/16 03/23/16 03/23/16 03/23/16 07:00 15:00 23:00 07:00 15:00 23:00 Intake Total 556 ml 1042 ml 360 ml 720 ml 720 ml Output Total 1200 ml 1400 ml 1100 ml 500 ml Balance -644 ml -358 ml 360 ml -380 ml 220 ml Intake Oral 240 ml 720 ml 360 ml 720 ml 720 ml IV Total 316 ml 322 ml Output Urine Total 1200 ml 1400 ml 1100 ml 500 ml # Voids 2 # Bowel Movements 0 1 1 0 3 Result Diagram: 03/23/16 0750 03/23/16 0750 Objective Remarks GENERAL: WBWN AA female, NAD SKIN: Warm and dry. HEAD: Normocephalic. EYES: No scleral icterus. No injection or drainage. NECK: Supple, trachea midline. No JVD or lymphadenopathy. CARDIOVASCULAR: Regular rate and rhythm without murmurs, gallops, or rubs. RESPIRATORY: Breath sounds equal bilaterally. No accessory muscle use. GASTROINTESTINAL: Abdomen soft, non-tender, nondistended. MUSCULOSKELETAL: No cyanosis, or edema. BACK: Nontender without obvious deformity. No CVA tenderness. A/P Assessment and Plan Hypercapnoic RF improved Obesity Hypoventilation synd Lilkly NICOLE HTN DM CHF PLAN: Monitor BS Will need Sleep study as out patient Pred 10 mg bid Stable from pulm standpoint Giuseppe Castellon MD Mar 23, 2016 19:20
[2016-03-23] MEDS: PRAVASTATIN SOD 80 MG TAB PO SCH (20:51)
[2016-03-23] MEDS: LEVOFLOXACIN 750 MG PREMIX INJ 150 ML IV SCH (20:52)
[2016-03-24] VITALS (7 sets, daily range): BP systolic 136–174; BP diastolic 82–91; PULSE 94–106; RESP 18–20; TEMP 97.5–99; O2SAT 92–99
[2016-03-24] MEDS: LABETALOL HCL 100 MG/20 ML VIAL IV PUSH PRN (01:52)
[2016-03-24] MEDS: CHLORHEXIDINE GLUCONATE 2 % 1 PACK (2 CLOTHS) TOP SCH (04:00)
[2016-03-24] MEDS: hydrALAZINE HCL 20 MG/ML VIAL IV PUSH PRN (05:44)
[2016-03-24] MEDS: INSULIN NovoLIN REGULAR SUPPLEMENTAL SCALE SQ SCH ×4 (05:45→17:15)
[2016-03-24] MEDS: HEPARIN SODIUM - SQ 10,000 UNITS/ML VIAL SQ SCH ×3 (05:45→21:39)
[2016-03-24 07:04] LABS: HEMATOCRIT 34.6 % (35.0-46.0); MEAN CELL VOLUME 84.7 FL (80.0-100.0); MEAN CORPUSCULAR HEMOGLOBIN 27.9 PG (27.0-34.0); MEAN CORPUSCULAR HGB CONC 32.9 % (32.0-36.0); PLATELET COUNT 258 TH/MM3 (150-450); RED BLOOD COUNT 4.09 MIL/MM3 (4.00-5.30); RED CELL DISTRIBUTION WIDTH 14.8 % (11.6-17.2); REVIEW FLAG FINAL; WHITE BLOOD COUNT 5.5 TH/MM3 (4.0-11.0)
[2016-03-24 07:05] LABS: BICARBONATE 29.6 MEQ/L (21.0-32.0); POTASSIUM 4.8 MEQ/L (3.5-5.1)
[2016-03-24] MEDS: DOCUSATE SODIUM 50 MG/SENNA 8.6 MG TAB PO SCH ×2 (08:48→21:39)
[2016-03-24] MEDS: predniSONE 10 MG TAB PO SCH ×2 (08:48→21:39)
[2016-03-24] MEDS: SODIUM CHLORIDE 0.9% FLUSH 5 ML FLUSH IV FLUSH SCH ×2 (08:49→21:00)
[2016-03-24] MEDS: PANTOPRAZOLE SOD 40 MG DELAYED RELEASE TAB PO SCH (08:49)
[2016-03-24] MEDS: METOPROLOL TARTRATE 25 MG TAB PO SCH ×2 (08:49→21:39)
--- NOTE | 2016-03-24 11:35 | HHI.PR ---
Subjective Remarks 66 YO AA female with HTN,DM, SOB Had hypercapnoic RF, much better No N,V Feels much better Weaned to RA Ambulates No new complaint Objective Vital Signs Vital Signs Date Time Temp Pulse Resp B/P Pulse Ox O2 Delivery O2 Flow Rate FiO2 03/24/16 08:03 98.0 97 20 136/86 92 03/24/16 00:00 98.7 106 20 174/91 93 03/23/16 20:18 99 03/23/16 20:00 98.4 99 20 177/84 92 03/23/16 16:00 98.0 99 18 153/73 99 03/23/16 12:00 98.0 99 16 170/76 93 I/O 03/23/16 03/23/16 03/23/16 03/24/16 03/24/16 03/24/16 07:00 15:00 23:00 07:00 15:00 23:00 Intake Total 720 ml 720 ml 720 ml Output Total 1100 ml 500 ml Balance -380 ml 220 ml 720 ml Intake Oral 720 ml 720 ml 720 ml Output Urine Total 1100 ml 500 ml # Voids 2 # Bowel Movements 0 3 1 Result Diagram: 03/24/16 0555 03/24/16 0555 Objective Remarks GENERAL: WBWN AA female, NAD SKIN: Warm and dry. HEAD: Normocephalic. EYES: No scleral icterus. No injection or drainage. NECK: Supple, trachea midline. No JVD or lymphadenopathy. CARDIOVASCULAR: Regular rate and rhythm without murmurs, gallops, or rubs. RESPIRATORY: Breath sounds equal bilaterally. No accessory muscle use. GASTROINTESTINAL: Abdomen soft, non-tender, nondistended. MUSCULOSKELETAL: No cyanosis, or edema. BACK: Nontender without obvious deformity. No CVA tenderness. A/P Assessment and Plan Hypercapnoic RF improved Obesity Hypoventilation synd Lilkly NICOLE HTN DM CHF PLAN: Monitor BS Will need Sleep study as out patient Pred 10 mg bid Stable from pulm standpoint DC plans underway She will FU with and Dr.Wahba Castellon,Giuseppe Estrella MD Mar 24, 2016 11:35
--- NOTE | 2016-03-24 13:52 | HHI.NPPN ---
Subjective Complaints: Obesity, Shortness of Breath General Problems: Hypertension Renal Failure: Acute, Stage III Interval History Creatinine slightly worse but overall stable. No acute concerns. (Elba Vu) Review of Systems Respiratory Lungs: SOB (Elba Vu) Objective Data Data 03/23/16 03/24/16 19:00 07:00 Intake Total 720 ml 720 ml Output Total 500 ml Balance 220 ml 720 ml Intake Oral 720 ml 720 ml Output Urine Total 500 ml # Voids 2 # Bowel Movements 3 1 Vital Signs Date Time Temp Pulse Resp B/P Pulse Ox O2 Delivery O2 Flow Rate FiO2 03/24/16 08:03 98.0 97 20 136/86 92 03/24/16 00:00 98.7 106 20 174/91 93 03/23/16 20:18 99 03/23/16 20:00 98.4 99 20 177/84 92 03/23/16 16:00 98.0 99 18 153/73 99 (Elba Vu) -: 03/24/16 0555 03/24/16 0555 Physical Exam General Appearance: Well Developed, Well Nourished, No Acute Distress, Comfortable, Obese (Elba Vu) Eyes Eye Exam: Pupils Equal (Elba Vu) Throat Throat Exam: Oral Mucosa Emmett & Moist (Elba Vu) Pulmonary Resp Exam: Clear Bilaterally, Breath Sounds Equal, No Distress (Elba Vu) Cardiology CV Exam: Regular, Normal Sinus Rhythm, Good Perfusion (Elba Vu) Gastrointestinal/Abdomen GI Exam: Soft, Non-Tender, Bowel Sounds Present (Elba Vu) Musculoskeletal MS Exam: Joints Intact, Good Strength (Elba Vu) Integumentary Skin Exam: Clear, Warm, Dry, Intact, Normal Turgor (Elba Vu) Extremeties Extremities Exam: No Edema, Pedal Pulses Palpable (Elba Vu) Neurologic Neuro Exam: Alert, Awake, Oriented, Speech Clear, Moving All Extremities ( Elba Vu) Assessment/Plan Discussed Condition With: Patient Assessment Summary: Hypertension, CKD Stage III Problem List: (1) CHRIS (acute kidney injury) Plan: on CKD 3, baseline from March 2015 1.48 likely diabetic nephropathy with 1.2 g proteinuria CHRIS likely contrast induced nephropathy, had CT with contrast on 03/19 renal US negative, medical renal disease only renal function has stabilized, this may be her new baseline electrolytes unremarkable non oliguric monitor renal function daily avoid nephrotoxins inpatient, renally dose medications when appropriate she was advised to stop the diclofenac once discharged would benefit from JORGE or ARB once renal function returns to baseline (2) DM (diabetes mellitus) Plan: monitor glucose insulin as needed (3) Hypoxia Plan: improving, on room air also being treated for bilateral pneumonia management per medical team, pulmonary following on prednisone Plan She can be discharged from renal standpoint. (Elba Vu) Plan patient was seen and examined. Creatinine of 1.9 may be her baseline. She can be discharged from renal standpoint. (Brenden Easley MD) Problem Qualifiers (1) DM (diabetes mellitus): Elba Vu Mar 24, 2016 13:52 Brenden Easley MD Mar 24, 2016 15:07
[2016-03-24] MEDS ORDERED: SODIUM CHLOR 0.9% 1000 ML INJ 1,000 ML IV SCH (15:00)
--- NOTE | 2016-03-24 15:03 | HHI.PR ---
Subjective Remarks Pt doing well today She is anxious for discharge No new complaints. Objective Vitals Vital Signs Date Time Temp Pulse Resp B/P Pulse Ox O2 Delivery O2 Flow Rate FiO2 03/24/16 08:03 98.0 97 20 136/86 92 03/24/16 08:00 103 03/24/16 00:00 98.7 106 20 174/91 93 03/23/16 20:18 99 03/23/16 20:00 98.4 99 20 177/84 92 03/23/16 16:00 98.0 99 18 153/73 99 03/23/16 03/23/16 03/24/16 15:00 23:00 07:00 Intake Total 720 ml 720 ml Output Total 500 ml Balance 220 ml 720 ml Intake Oral 720 ml 720 ml Output Urine Total 500 ml # Voids 2 # Bowel Movements 3 1 Result Diagram: 03/24/16 0555 03/24/16 0555 Imaging Last Impressions Renal Ultrasound 03/21/16 0000 Signed Impressions: Service Date/Time: Monday, March 21, 2016 09:25 - CONCLUSION: Increased renal cortical echogenicity indicating medical renal disease. No hydronephrosis. Chintan Sumner MD Chest X-Ray 03/20/16 0600 Signed Impressions: Service Date/Time: Sunday, March 20, 2016 05:16 - CONCLUSION: Unchanged tiny effusions and bibasilar consolidation. Mitchell Collins Jr., MD CT Angiography 03/19/16 1601 Signed Impressions: Service Date/Time: Saturday, March 19, 2016 17:52 - CONCLUSION: 1. No pulmonary embolus. 2. Moderate bibasilar atelectasis and small bilateral pleural effusions. 3. Nonspecific upper limits of normal to mildly enlarged mediastinal lymph nodes. 4. Left ventricular enlargement. Chintan Motley MD Objective Remarks General: NAD, AAOx3 Chest: CTA bilaterally Cardiac: Regular Abd: +BS, soft ND/NT Ext: No edema A/P Problem List: (1) Hypoxia Status: Acute Plan: - Pt admitted to [facility] on 03/19/16 with worsening SOB which had been progressive over the last 2-3 months, but have been significantly worse over the 3 days prior to admission. - She has been referred to pulmonology and was seen by Dr. Womack and had pulmonary function testing performed on 03/14/16 but has not yet had follow-up regarding results. - Pt was admitted to the ICU with acute hypoxemic and hypercapnic respiratory failure with pH of 7.27/PaCO2 of 64/PA O2 of 100/bicarbonate 29 - CTA (03/19/16) --> No pulmonary embolus. Moderate bibasilar atelectasis and small bilateral pleural effusions. Nonspecific upper limits of normal to mildly enlarged mediastinal lymph nodes. Left ventricular enlargement. - CXR (03/20/16) --> Unchanged tiny effusion and bibasilar consolidation - Pt was on BiPAP until 03/21/16 and was transferred out of the ICU on NC - Pulmonary medicine is following. - Pt was treated with IV steroids which has been changed to po Prednisone - Levaquin IV will be changed to po - Pts symptoms felt to likely be related to obesity hypoventilation syndrome and NICOLE - Pt has been weaned to RA - Creatinine increased slightly today to 1.92 - We will give one bag of NS and repeat labs in AM - Pt has an appt with Dr. Dean's office for a sleep study later this month. - Anticipate discharge home tomorrow, 03/25/16, if labs are stable and pt is clinically stable. (2) Acute on chronic renal insufficiency Status: Chronic Plan: - Pt with CKD stage 3, with baseline Creatinine from March 2015 was 1.48 - Creatinine at admission was 1.4 - Pt likely has diabetic nephropathy with 1.2 g proteinuria - Nephrology following and feels that the CHRIS likely secondary to contrast induced nephropathy, due to the CTA with contrast on 03/19 - Renal US negative, medical renal disease only - Renal function increased slightly today to Cr 1.92 - Give one liter of NS today and repeat labs in AM (3) DM (diabetes mellitus) Status: Chronic Plan: - SSI - Accu checks (4) HTN (hypertension) Status: Chronic Plan: - Pts BP has been up and down - Cont. Norvasc 10mg po daily, Metoprolol 25mg Q12H - Pt was also on Losartan 25mg PO daily prior to admission which was held due to renal insuff. - Monitor Assessment and Plan Patient examined. Assessment and plan formulated with Lory Kelly PA-C. I agree with the above. Problem Qualifiers (1) DM (diabetes mellitus): Lory Kelly Mar 24, 2016 15:03 Winston Thrasher DO Mar 25, 2016 10:31
[2016-03-24] MEDS: PRAVASTATIN SOD 80 MG TAB PO SCH (21:39)
[2016-03-25] MEDS: INSULIN NovoLIN REGULAR SUPPLEMENTAL SCALE SQ SCH ×3 (01:09→12:04)
[2016-03-25] MEDS ORDERED: diphenhydrAMINE HCL 25 MG CAP PO SCH (01:15)
[2016-03-25 01:41] VITALS: BP 144/82; PULSE 94; RESP 18; TEMP 97.5; O2SAT 95
[2016-03-25] MEDS: CHLORHEXIDINE GLUCONATE 2 % 1 PACK (2 CLOTHS) TOP SCH (04:00)
[2016-03-25 06:01] VITALS: BP 161/93; PULSE 114; RESP 18; TEMP 98.1; O2SAT 95
[2016-03-25] MEDS: HEPARIN SODIUM - SQ 10,000 UNITS/ML VIAL SQ SCH ×2 (06:26→11:46)
[2016-03-25 07:25] LABS: HEMATOCRIT 34.5 % (35.0-46.0); MEAN CELL VOLUME 84.5 FL (80.0-100.0); MEAN CORPUSCULAR HEMOGLOBIN 28.7 PG (27.0-34.0); PLATELET COUNT 238 TH/MM3 (150-450); RED BLOOD COUNT 4.08 MIL/MM3 (4.00-5.30); REVIEW FLAG FINAL; WHITE BLOOD COUNT 5.3 TH/MM3 (4.0-11.0)
[2016-03-25 07:44] LABS: BICARBONATE 29.7 MEQ/L (21.0-32.0); POTASSIUM 4.5 MEQ/L (3.5-5.1)
[2016-03-25 08:00] VITALS: BP 180/94; PULSE 108; RESP 20; TEMP 99.4; O2SAT 93
[2016-03-25] MEDS: SODIUM CHLORIDE 0.9% FLUSH 5 ML FLUSH IV FLUSH SCH (09:09)
[2016-03-25] MEDS: DOCUSATE SODIUM 50 MG/SENNA 8.6 MG TAB PO SCH (09:10)
[2016-03-25] MEDS: predniSONE 10 MG TAB PO SCH (09:10)
[2016-03-25] MEDS: METOPROLOL TARTRATE 25 MG TAB PO SCH (09:10)
[2016-03-25] MEDS: PANTOPRAZOLE SOD 40 MG DELAYED RELEASE TAB PO SCH (09:10)
[2016-03-25 09:28] VITALS: PULSE 96
--- NOTE | 2016-03-25 10:33 | HHI.DS ---
Discharge Summary Admission Date Mar 19, 2016 at 17:54 Discharge Date: Mar 25, 2016 Admitting Diagnosis respiratory distress, severe hypoxia, respiratory acidosis (1) Hypoxia Diagnosis: Principal (2) Acute on chronic renal insufficiency Diagnosis: Principal (3) DM (diabetes mellitus) Diagnosis: Secondary (4) HTN (hypertension) Diagnosis: Secondary Consultants Dr. Giuseppe Castellon, Pulmonary Medicine Dr. Brenden Easley, Nephrology Brief History 66-year-old female with past medical history of hypertension, CHF, hyperlipidemia, diabetes, CKD stage II to III, obesity who presents to [facility] ED with SOB. She states her symptoms have been progressive over the last 2- 3 months but have been significantly worse over the last 3 days. She gets short of breath with getting out of her bed and going to the recliner. She has a nonproductive cough. No hemoptysis. No fevers or chills. No known ill contacts. She has been referred to pulmonology and was seen by Dr. Womack and had pulmonary function testing performed on 03/14/16 but has not yet had follow- up regarding results.. She is not on home oxygen. She has been evaluated by Dr. Rodriguez with cardiology and had previous plans for stress test 03/24/16. She denies any chest pain. Troponin is 0.02. BNP is 57. She has acute hypoxemic and hypercapnic respiratory failure with pH of 7.27/PaCO2 of 64/PA O2 of 100/bicarbonate 29. In the ED she received Lasix 80 mg IV CBC/BMP: 03/25/16 0637 03/25/16 0637 Significant Findings Laboratory Tests Test 03/22/16 03/23/16 03/24/16 03/25/16 12:45 07:50 05:55 06:37 Urine Microalbumin/Creatinine 1217 MG/G CRE Ratio (0-30) Blood Urea Nitrogen 38 MG/DL (7-18) 34 MG/DL (7-18) 25 MG/DL (7-18) Creatinine 1.81 MG/DL 1.92 MG/DL 1.48 MG/DL (0.50-1.00) (0.50-1.00) (0.50-1.00) Estimat Glomerular Filtration 34 ML/MIN (>89) 31 ML/MIN (>89) 42 ML/MIN (>89) Rate Random Glucose 148 MG/DL 132 MG/DL 121 MG/DL (74-106) (74-106) (74-106) Hemoglobin 11.4 GM/DL (11.6-15.3) Hematocrit 34.6 % 34.5 % (35.0-46.0) (35.0-46.0) Chloride Level 109 MEQ/L 109 MEQ/L (98-107) (98-107) Anion Gap 4 MEQ/L (5-15) 4 MEQ/L (5-15) Imaging Last Impressions Renal Ultrasound 03/21/16 0000 Signed Impressions: Service Date/Time: Monday, March 21, 2016 09:25 - CONCLUSION: Increased renal cortical echogenicity indicating medical renal disease. No hydronephrosis. Chintan Sumner MD Chest X-Ray 03/20/16 0600 Signed Impressions: Service Date/Time: Sunday, March 20, 2016 05:16 - CONCLUSION: Unchanged tiny effusions and bibasilar consolidation. Mitchell Collins Jr., MD CT Angiography 03/19/16 1601 Signed Impressions: Service Date/Time: Saturday, March 19, 2016 17:52 - CONCLUSION: 1. No pulmonary embolus. 2. Moderate bibasilar atelectasis and small bilateral pleural effusions. 3. Nonspecific upper limits of normal to mildly enlarged mediastinal lymph nodes. 4. Left ventricular enlargement. Chintan Motley MD PE at Discharge General: NAD, AAOx3 Chest: CTA bilaterally Cardiac: Regular Abd: +BS, soft ND/NT Ext: No edema Hospital Course (1) Hypoxia Status: Acute Plan: - Pt admitted to [facility] on 03/19/16 with worsening SOB which had been progressive over the last 2-3 months, but have been significantly worse over the 3 days prior to admission. - She has been referred to pulmonology and was seen by Dr. Womack and had pulmonary function testing performed on 03/14/16 but has not yet had follow-up regarding results. - Pt was admitted to the ICU with acute hypoxemic and hypercapnic respiratory failure with pH of 7.27/PaCO2 of 64/PA O2 of 100/bicarbonate 29 - CTA (03/19/16) --> No pulmonary embolus. Moderate bibasilar atelectasis and small bilateral pleural effusions. Nonspecific upper limits of normal to mildly enlarged mediastinal lymph nodes. Left ventricular enlargement. - CXR (03/20/16) --> Unchanged tiny effusion and bibasilar consolidation - Pt was on BiPAP until 03/21/16 and was transferred out of the ICU on NC - Pt was treated with IV steroids which was changed to po Prednisone - Levaquin IV changed to po - Pts symptoms felt to likely be related to obesity hypoventilation syndrome and NICOLE - Pt was weaned to RA - Creatinine increased slightly today to 1.92 (03/24/16). Pt treated with 2L IVFs & Creatinine decreased to 1.48 on day of discharge () - Pt has an appt with Dr. Dean's office for a sleep study later this month. - discharge to home - see discharge orders (2) Acute on chronic renal insufficiency Status: Chronic Plan: - Pt with CKD stage 3, with baseline Creatinine from March 2015 was 1.48 - Creatinine at admission was 1.4 - Pt likely has diabetic nephropathy with 1.2 g proteinuria - Nephrology following and feels that the CHRIS likely secondary to contrast induced nephropathy, due to the CTA with contrast on 03/19 - Renal US negative, medical renal disease only - see above (3) DM (diabetes mellitus) Status: Chronic Plan: - SSI - Accu checks - pt to resume outpt regimen upon discharge - see discharge orders (4) HTN (hypertension) Status: Chronic Plan: - Pts BP has been up and down - Cont. Norvasc 10mg po daily, Metoprolol 25mg Q12H - resume losartan upon discharge Pt Condition on Discharge: Stable Discharge Disposition: Discharge Home Discharge Instructions DIET: Follow Instructions for: Heart Healthy Diet, Diabetic Diet Activities you can perform: Regular-No Restrictions Follow up Referrals: Nephrology - [address] Easley PCP Follow-up - [address] Marquita Nath Pulmonology - 2 Weeks with Benja Womack MD Pulmonology - 2 Weeks with Dianne Dean MD Continued Medications: Allopurinol (Allopurinol) 300 Mg Tab 300 MG PO DAILY Gout #30 Ref 0 TAB Amlodipine (Amlodipine) 10 Mg Tab 10 MG PO DAILY Blood Pressure Management #30 Ref 0 TAB Atenolol (Atenolol) 50 Mg Tab 50 MG PO DAILY Blood Pressure Management #30 Ref 0 TAB Canagliflozin-Metformin (Invokamet) 150-1,000 Mg Tab 1 TAB PO BID Take with meals. Avoid ethanol. Blood Sugar Management #60 Ref 0 TAB Cholecalciferol (Vitamin D) 1,000 Unit Tab 1000 UNITS PO DAILY Nutritional Supplement #1 Ref 0 BOTTLE Losartan (Losartan) 25 Mg Tab 25 MG PO DAILY Blood Pressure Management #30 Ref 0 TAB Mometasone-Formoterol 120 Act Inh (Dulera 120 Act Inh) 100-5 Mcg/Act Inh 2 PUFF INH BID Asthma Management #1 Ref 0 INHALER Simvastatin (Simvastatin) 10 Mg Tab 10 MG PO DAILY Cholesterol Management #30 Ref 0 TAB Discontinued Medications: Diclofenac Sodium DR (Diclofenac Sodium DR) 75 Mg Tabdr 75 MG PO DAILY #30 Ref 0 TAB Naproxen (Naproxen) 500 Mg Tab 500 MG PO BID PRN PAIN #60 Ref 0 TAB Winston Thrasher DO Mar 25, 2016 10:33
[2016-03-25] MEDS ORDERED: cloNIDine HCL 0.2 MG TAB PO PRN (11:45)
[2016-03-25] MEDS ORDERED: PRED10 PO (11:47)
--- NOTE | 2016-03-25 12:18 | HHI.NPPN ---
Subjective Complaints: Obesity, Shortness of Breath General Problems: Hypertension Renal Failure: Acute, Stage III Interval History patient's renal function has improved. She is to be discharged today. Review of Systems Respiratory Lungs: SOB Objective Data Data 03/24/16 03/25/16 19:00 07:00 Intake Total 480 ml 800 ml Balance 480 ml 800 ml Intake Oral 480 ml 800 ml # Voids 8 # Bowel Movements 2 Vital Signs Date Time Temp Pulse Resp B/P Pulse Ox O2 Delivery O2 Flow Rate FiO2 03/25/16 09:28 96 03/25/16 08:00 99.4 108 20 180/94 93 03/25/16 06:01 98.1 114 18 161/93 95 03/25/16 01:41 97.5 94 18 144/82 95 03/24/16 20:20 Room Air 03/24/16 20:11 97.5 94 18 144/82 99 03/24/16 20:00 98 03/24/16 16:04 99.0 99 20 140/82 92 -: 03/25/16 0637 03/25/16 0637 Physical Exam General Appearance: Well Developed, Well Nourished, No Acute Distress, Comfortable, Obese Eyes Eye Exam: Pupils Equal Throat Throat Exam: Oral Mucosa [place] & Moist Pulmonary Resp Exam: Clear Bilaterally, Breath Sounds Equal, No Distress Cardiology CV Exam: Regular, Normal Sinus Rhythm, Good Perfusion Gastrointestinal/Abdomen GI Exam: Soft, Non-Tender, Bowel Sounds Present Musculoskeletal MS Exam: Joints Intact, Good Strength Integumentary Skin Exam: Clear, Warm, Dry, Intact, Normal Turgor Extremeties Extremities Exam: No Edema, Pedal Pulses Palpable Neurologic Neuro Exam: Alert, Awake, Oriented, Speech Clear, Moving All Extremities Assessment/Plan Discussed Condition With: Patient Assessment Summary: Hypertension, CKD Stage III Problem List: (1) CHRIS (acute kidney injury) Plan: May have underlying CKD stage III due to diabetic nephropathy. CHRIS likely due to radiocontrast. Improved. Patient can be discharged from renal standpoint. We will follow her in the office. Discussed with the patient. (2) DM (diabetes mellitus) Plan: monitor glucose insulin as needed (3) Hypoxia Plan: improving, on room air also being treated for bilateral pneumonia management per medical team, pulmonary following on prednisone Problem Qualifiers (1) DM (diabetes mellitus): Brenden Easley MD Mar 25, 2016 12:18
[2016-03-29 09:50] LABS: CRITICAL VALUE YES
== END 2016-03-25 12:48 | disposition home or self-care (01) | DRG 189 ==
LOC: NEPA 15:49 → NEDA 17:54 → HIME 20:10 → N04A 03-22 15:49
PROVIDERS: ADMIT Internal Medicine Critical Care Medicine; ATTEND Internal Medicine Critical Care Medicine
PROC: 5A09457 Assistance with Respiratory Ventilation, 24-96 Consecutive Hours, Continuous Positive Airway Pressure (ICD-10-PCS; principal; 2016-03-19)
DX: J96.01 Acute respiratory failure with hypoxia (principal); N17.9 Acute kidney failure, unspecified; J18.9 Pneumonia, unspecified organism; I13.0 Hypertensive heart and chronic kidney disease with heart failure and stage 1 through stage 4 chronic kidney disease, or unspecified chronic kidney disease; I50.22 Chronic systolic (congestive) heart failure; E11.22 Type 2 diabetes mellitus with diabetic chronic kidney disease; E66.2 Morbid (severe) obesity with alveolar hypoventilation; Z68.41 Body mass index [BMI] 40.0-44.9, adult; J98.11 Atelectasis; N18.3 Chronic kidney disease, stage 3 (moderate); Z79.84 Long term (current) use of oral hypoglycemic drugs; J96.02 Acute respiratory failure with hypercapnia; G47.33 Obstructive sleep apnea (adult) (pediatric); N14.1 Nephropathy induced by other drugs, medicaments and biological substances; T50.8X5A Adverse effect of diagnostic agents, initial encounter; I25.10 Atherosclerotic heart disease of native coronary artery without angina pectoris; M10.9 Gout, unspecified; E78.5 Hyperlipidemia, unspecified; Z87.891 Personal history of nicotine dependence
CPT/HCPCS: 36600; 71010; 71275; 76775; 76937; 80048; 81001; 82043; 82550; 82805; 82948; 83735; 83880; 84132; 84484; 85025; 85027; 85610; 87040; 87641; 93005; 93306; 94002; 94003; 94150; 94640; 94664; 94667; 96374; C9113; J0360; J1644; J1940; J1956; J2930; J7030; J7512; Q9967

== ENCOUNTER → 2016-06-08 | Outpatient (CLI) | payer OTHER ==
[~2016-06-08] MED LIST changes: -1-ME1LIQ PO; -ACET325 PO; +ALLO300T2 PO; +AMLO10TA2 PO; +ATEN50TA PO; +CANA1TAB4 PO; +DULE100A INH; -GABA300C3 PO; -LORTA5 PO; +LOSA25TA PO; -METF-324; +PRED10 PO; +SIMV10TA PO; -VASO10TA8 PO; +VITA100064 PO; -ZOCO40TA PO
[2016-06-08 10:01] LABS: BLOOD GAS CARBOXYHEMOGLOBIN 1.3 % (0-4); BLOOD GAS HCO3 25 mmol/L (22-26); BLOOD GAS O2 HGB SATURATION 90 % (90-100); BLOOD GAS OXYGEN CONTENT 15.6 Vol % (12.0-20.0); BLOOD GAS PCO2 47 mmHg (38-42); BLOOD GAS PO2 69 mmHg (61-120); BLOOD GAS TOTAL HGB 12.3 G/DL (12.0-16.0); CRITICAL VALUE NO; DRAW SITE RT RADIAL; FIO2 21 %; NUMBER OF ARTERIAL PUNCTURES 1; STAT NO; TEMP CORR TO 98.6; ULNAR PULSE PRESENT
--- NOTE | 2016-06-12 11:03 | RSPPFT ---
DATE OF PROCEDURE: 06/08/16 COMMENTS: Spirometry with FVC of 1.1 predicted 2.6, FEV1 of 0.8 predicted 1.8, FEV1/FVC ratio at 75% predicted 71%. Air trapping is present with RV at 2.7 predicted 1.7. IMPRESSION: On the basis of the above, patient has a mild obstructive defect with no dramatic response to acutely inhaled bronchodilator.
== END ==
LOC: HRSP 09:00
PROVIDERS: ATTEND Internal Medicine Pulmonary Disease
DX: G47.30 Sleep apnea, unspecified (principal)
CPT/HCPCS: 36600; 82805; 94060; 94620; 94726; 94729

== ENCOUNTER → 2017-02-20 | Outpatient (CLI) | payer OTHER ==
--- NOTE | 2017-02-22 09:09 | RSPPFT ---
DATE OF PROCEDURE: 02/20/17 COMMENTS: Spirometry shows FVC of 1.7 predicted 3.0, FEV1 of 1.2 predicted 2.4, FEV1/FVC ratio 75% predicted 81%. There is mild air trapping with RV at 2.4 predicted 2.2. IMPRESSION: The flow volume loops are not available to review, The FEF 25-75 indicates possible mild obstructive lung defect based on decreased RV/TLC ratio and decreased diffusion.
== END ==
LOC: HRSP 09:47
PROVIDERS: ATTEND Internal Medicine Pulmonary Disease
DX: J44.9 Chronic obstructive pulmonary disease, unspecified (principal)
CPT/HCPCS: 94060; 94620; 94726; 94729

== ENCOUNTER → 2017-08-22 | Outpatient (CLI) | payer OTHER | LOC: HRSP 09:17 | PROVIDERS: ATTEND Internal Medicine Pulmonary Disease | DX: J44.9 Chronic obstructive pulmonary disease, unspecified (principal) | CPT/HCPCS: 94060; 94726; 94729 ==